=== PATIENT | male | born 1955 | race Caucasian/White ===

== ENCOUNTER 2024-12-01 23:25 | Emergency (ER) | payer OTHER, SELFPAY ==
--- OUTSIDE RECORDS SUMMARY | 2024-09-28 13:15 | XMS_ITS ---
Author Organization [facility] Address [address] [facility] [address] [place] [address] Care Team Providers Care Skills Trainer Name Role Phone Tony Watson Primary Care Provider Mayela Richards Unavailable [phone] Encounters Encounter Location Date Provider Diagnosis [address] [place] [address] 09/28/2024 Mayela Javier Plan Of Treatment Next Appt Details Provider Name:Mayela rowley, 12/21/2024 01:00:00 PM, [address] [facility] [address], [address], [place], [address], Progress Notes * Kasi ASH EDOB: (69 yo M)Acc No.[id number]:09/28/2024 Progress Notes Patient: Kasi LOPEZ Provider: Julius Javier DO :1955 A ge:69 Y S ex:Male Date:09/28/2024 [facility]:[address] Pcp:Tony Watson Subjective: * Chief Complaints: * * Medical History: Objective: * Vitals: Assessment: Plan: * Treatment: * * Electronic signature of Gayla Javier DO on 12/02/2024 at 12:10 AM EDT Sign off status: Pending * Provider: Julius Javier DO Date: 0 09/28/2024 Generated for Cliff santiago/Josh/eTransmitting on: 0 12/02/2024 12:10 AM EDT
--- OUTSIDE RECORDS SUMMARY | 2024-10-26 13:00 | XMS_ITS ---
Author Organization [facility] Address [address] [facility] [place] [address] Care Team Providers Care Oil Agent Name Role Phone Tony Watson Primary Care Provider Mayela Richards Unavailable [phone] Allergies No Known Allergies REASON FOR VISIT 7 Week follow up Medications Medication SIG (Take, Route, Frequency, Duration) Notes Start Date End Date Status MiraLax 17 GM/SCOOP 1 scoop mixed with 8 ounces of fluid Orally Once a day Active Tricor 145 MG 1 tablet Orally Once a day Active Verapamil HCl ER 240 MG 1 tablet Orally Once a day Active Mirtazapine 15 MG 1 tablet at bedtime Orally Once a day Active Proscar 5 MG 1 tablet Orally Once a day Active LORazepam 0.5 MG 1 tablet at bedtime as needed Orally Once a day Active Memantine HCl 5 MG 1 tablet Orally Once a day Active hydroCHLOROthiazide 25 MG 1 tablet in th e morning Orally Once a day Active Lisinopril 40 MG 1 tablet Orally Once a day Active Effexor XR 150 MG 1 capsule with food Orally Once a day Active Divalproex Sodium 250 MG 1 tablet Orally Twice a day Active buPROPion HCl Active Coenzyme Q10 200 MG as directed Orally Active Abilify 5 MG 1 tablet Orally Once a day Active Social History Tobacco Use: Social History Observation Description Date Details (start date - stop date) Never Smoker NA - NA Tobacco Control (Standard) Question Answer Notes Tobacco use: Nonsmoker Vital Signs Height 69 in 10/26/2024 Encounters Encounter Location Date Provider Diagnosis [address] [place] [address] 10/26/2024 Mayela Javier INEZ (acute kidney injury) N17.9 ; Benign essential HTN I10 ; BPH (benign prostatic hypertrophy) N40.0 and Obesity (BMI 30-39.9) E66.9 Assessments Encounter Date Diagnosis (ICD Code) Assessment Notes Treatment Notes Treatment Clinical Notes Section Notes 10/26/2024 INEZ (acute kidney injury) (ICD-10 - N17.9) 10/26/24- - Patient with eGFR of 19ml/min from prior 37ml/min consistent with CKD stage 4. Patient with a Ca 8.9, Albumin 4.1, Phos 3.1. 09/07/24- - - Chronic kidney disease with eGFR of 37ml/min- labs from 09/04/24, from prior levels of to 70ml/min- - -labs from 05/21/24. Etiology associated with history of chronic hypertension with likely associated hypertensive nephrosclerosis. Initial recommendations to work on exercise and weight loss. Patient instructions to avoid non steroidal medications and nephrotoxins, due to their detrimental effects on the kidneys. Labs reviewed with patient and instructions on continued renal improvement provided. Discussed with the patient the aim of sustaining their residual renal function, based on the following: A) Goal of blood pressure of less than 130/80mmHg B) Tight glycemic control with goal A1c less than 6.5 C) Goal urine protein excretion of less than 500mg/dl D) Treat metabolic acidosis with goal serum bicarbonate of more than 20 E) Keep Phos level between 3.5 - 5.5mg/dl F) Goal LDL of less [id number]/dl G) Goal of keeping uric acid level less than 6.5mg/dl H) Maintain a 2gm sodium diet 10/26/2024 Benign essential HTN (ICD-10 - I10) 10/26/24- - - Blood pressure readings in the office today was */*. Goal recommendations of less than 2gms a day sodium diet. Patient education on the significance of management of hypertension, and its effect on sustaining or contributing to the decline in the residual renal function. Monitor home blood pressure, with goal range of systolic readings of 110 to 130 and diastolic readings of 60 to 80. 09/07/24- - - Blood pressure readings in the office today was 149/79. Goal recommendations of less than 2gms a day sodium diet. Patient education on the significance of management of hypertension, and its effect on sustaining or contributing to the decline in the residual renal function. Monitor home blood pressure, with goal range of systolic readings of 110 to 130 and diastolic readings of 60 to 80. 10/26/2024 BPH (benign prostatic hypertrophy) (ICD-10 - N40.0) 09/07/24- - - Patient with urological evidence of urinary retention with planned referral and continued urology consult and management. Plan for intermittent evaluation to rule out obstructive nephropathy. 10/26/2024 Obesity (BMI 30-39.9) (ICD-10 - E66.9) 10/26/24- - - weight of * lbs. Recommendations of dietary and exercise monitoring and management. Recommendations for diet and exercise to aid in achieving a reduction in weight by about 10 to 20 pounds, as a requirement for improved renal function, as well as, additional health benefits. 09/07/24- - - weight of 220lbs. Recommendations of dietary and exercise monitoring and management. Recommendations for diet and exercise to aid in achieving a reduction in weight by about 10 to 20 pounds, as a requirement for improved renal function, as well as, additional health benefits. Plan Of Treatment Next Appt Details Provider Name:Mayela rowley, 12/21/2024 01:00:00 PM, [address] [place] [address], [place], [address], Progress Notes * ARTISArmandony EDOB: (69 yo M)Acc No.[id number]:10/26/2024 Progress Notes Patient: Kasi LOPEZ Provider: Julius Javier DO :1955 A ge:69 Y S ex:Male Date:10/26/2024 Address:[address] [place], [place] [id number] Pcp:Tony Watson Subjective: * Chief Complaints: * 1 . 7 Week follow up. * HPI: C onstitutional: This is a 69 years old male who is referred to [facility] by his PCP for evaluation of renal insufficiency. Patient reports a medical history significant for BPH, hypertension--since the past 40 years; hyperlipidemia, anxiety, depression, chronic obstructive pulmonary disease with bronchospasm, pre-diabetes, keratosis, and rhinitis allergic. ? A llergies/Intolerance: N .K.D.A. S urgical History: c holecystectomy. I nterim History: 10/26/2024--- Patient presents to the office today for CKD F/U. Patient denies any recent hospitalizations or acute illness. Denies steroid or antibiotic usage recently. Denies recent falls or injuries. Patient denies chest pain, abdominal pain, nausea, vomiting or diarrhea. Patient denies edema or worsening to edema at home. Denies shortness of breath or difficulty breathing. Patient reports stable blood pressure at home without lightheadedness or dizziness. * Medical History: B PH, Hypertension, Hyperlipidemia, Anxiety, Depression, Chronic obstructive pulmonary disease with bronchospasm, Keratosis, Rhinitis allergic. * Surgical History: c holecystectomy , gallbladder . * Hospitalization/Major Diagno stic Procedure: S urgical reasons . * Family History: F ather: . M other: , diagnosed with Diabetes mellitus without mention of complication, type II or unspecified type, not stated as uncontrolled, Unspecified heart disease.? Father; heart failure. * Social History: T obacco Use: T obacco Control (Standard) T obacco use: N onsmoker. * Medications: T aking Abilify 5 MG Tablet 1 tablet Orally Once a day , Taking buPROPion HCl , Taking Coenzyme Q10 200 MG Tablet as directed Orally , Taking Divalproex Sodium 250 MG Tablet Delayed Release 1 tablet Orally Twice a day , Taking Effexor XR 150 MG Capsule Extended Release 24 Hour 1 capsule with food Orally Once a day , Taking hydroCHLOROthiazide 25 MG Tablet 1 tablet in the morning Orally Once a day , Taking Lisinopril 40 MG Tablet 1 tablet Orally Once a day , Taking LORazepam 0.5 MG Tablet 1 tablet at bedtime as needed Orally Once a day , Taking Memantine HCl 5 MG Tablet 1 tablet Orally Once a day , Taking MiraLax 17 GM/SCOOP Powder 1 scoop mixed with 8 ounces of fluid Orally Once a day , Taking Mirtazapine 15 MG Tablet 1 tablet at bedtime Orally Once a day , Taking Proscar 5 MG Tablet 1 tablet Orally Once a day , Taking Tricor 145 MG Tablet 1 tablet Orally Once a day , Taking Verapamil HCl ER 240 MG Tablet Extended Release 1 tablet Orally Once a day , Medication List reviewed and reconciled with the patient * Allergies: N .K.D.A. Objective: * Vitals: H t: 69 in. * P ast Orders: L ab:B12 (Order Date - 10/25/2024) (Collection Date & Time - 10/25/2024 05:41 AM) Value Reference Range Vitamin B12 Lvl 393 180-914 - pg/mL L ab:Ferritin (Order Date 10/25/2024) (Collection Date & Time - 10/25/2024 05:41 AM) Value Reference Range Ferritin Lvl 319.2 23.9-336.2 - ng/mL L ab:Folate Lvl (Order Date 10/25/2024) (Collection Date & Time - 10/25/2024 05:41 AM) Value Reference Range Folate Lvl 15.8 >=5.9 - ng/mL L ab:TIBC (Order Date 10/25/2024) (Collection Date & Time - 10/25/2024 05:41 AM) Value Reference Range Iron Sat 15.6 L >=16.0 - % TIBC 405 261-478 - mcg/dL Transferrin 289.0 203.0-362.0 - mg/dL Iron 63 50-212 - mcg/dL L ab:.eGFR (Order Date - 10/25/2024) (Collection Date & Time - 10/25/2024 02:52 PM) Value Reference Range eGFR Non-AA 24 L >=60 - mL/min/1.73m? L ab:Renal Panel (Order Date 10/25/2024) (Collection Date & Time - 10/25/2024 02:52 PM) Value Reference Range Sodium Lvl 140 136-145 - mmol/L Potassium Lvl 4.0 3.4-4.8 - mmol/L Chloride 108 H 98-107 - mmol/L CO2 25 21-31 - mmol/L Anion Gap 7 4-12 - mmol/L Glucose Lvl 184 H 70-99 - mg/dL BUN 34 H 7-25 - mg/dL Creatinine Lvl 2.83 H 0.70-1.30 - mg/dL BUN Crea Ratio 12.0 L 15.0-25.0 - ratio Albumin Lvl 4.4 4.2-5.5 - g/dL Calcium Lvl 9.4 8.6-10.3 - mg/dL Phosphorus 3.2 2.5-4.6 - mg/dL Assessment: * Assessment: 1. A KI (acute kidney injury) - N17.9 (Primary) 2 . B enign essential HTN - I10 3 . B PH (benign prostatic hypertrophy) - N40.0 4 . O besity (BMI 30-39.9) - E66.9 Plan: * Treatment: 2. B enign essential HTN Clinical Notes: 10/26/24- - - Blood pressure readings in the office today was */*. Goal recommendations of less than 2gms a day sodium diet. Patient education on the significance of management of hypertension, and its effect on sustaining or contributing to the decline in the residual renal function. Monitor home blood pressure, with goal range of systolic readings of 110 to 130 and diastolic readings of 60 to 80. 09/07/24- - - Blood pressure readings in the office today was 149/79. Goal recommendations of less than 2gms a day sodium diet. Patient education on the significance of management of hypertension, and its effect on sustaining or contributing to the decline in the residual renal function. Monitor home blood pressure, with goal range of systolic readings of 110 to 130 and diastolic readings of 60 to 80. 3. B PH (benign prostatic hypertrophy) Clinical Notes: 09/07/24- - - Patient with urological evidence of urinary retention with planned referral and continued urology consult and management. Plan for intermittent evaluation to rule out obstructive nephropathy. 4. O besity (BMI 30-39.9) Clinical Notes: 10/26/24- - - weight of * lbs. Recommendations of dietary and exercise monitoring and management. Recommendations for diet and exercise to aid in achieving a reduction in weight by about 10 to 20 pounds, as a requirement for improved renal function, as well as, additional health benefits. 09/07/24- - - weight of 220lbs. Recommendations of dietary and exercise monitoring and management. Recommendations for diet and exercise to aid in achieving a reduction in weight by about 10 to 20 pounds, as a requirement for improved renal function, as well as, additional health benefits. ? * * Electronic signature of Gayla Javier DO on 12/02/2024 at 12:10 AM EDT Sign off status: Pending * Provider: Julius Javier DO Date: 0 10/26/2024 Generated for Cliff santiago/Josh/eTransmitting on: 0 12/02/2024 12:10 AM EDT History and Physical Notes * HPI (History of Present Illness) Category Sub-Category Detail Notes Category Not es Constitutional This is a 69 years old male who is referred to [facility] by his PCP for evaluation of renal insufficiency. Patient reports a medical history significant for BPH, hypertension--since the past 40 years; hyperlipidemia, anxiety, depression, chronic obstructive pulmonary disease with bronchospasm, pre-diabetes, keratosis, and rhinitis allergic. Allergies/Intolerance: N.K.D.A. Surgical History: cholecystectomy
--- OUTSIDE RECORDS SUMMARY | 2024-10-30 09:00 | XMS_ITS ---
Author Organization [facility] Address [address] [place] [address] Care Team Providers Care Superintendent Meter Tests Name Role Phone Tony Watson Primary Care Provider Mayela Richards Unavailable [phone] Allergies No Known Allergies REASON FOR VISIT IPFU, Renal Medications Medication SIG (Take, Route, Frequency, Duration) Notes Start Date End Date Status Tricor 145 MG 1 tablet Orally Once a day Active Verapamil HCl ER 240 MG 1 tablet Orally Once a day Active MiraLax 17 GM/SCOOP 1 scoop mixed with 8 ounces of fluid Orally Once a day Activ e Proscar 5 MG 1 tablet Orally Once a day Active Tamsulosin HCl 0.4 MG 1 capsule Orally O nce a day; Duration: 30 day(s) Active buPROPion HCl 100 MG 150mg Active Memantine HCl 5 MG 1 tablet Orally twice a day Active Divalproex Sodium 250 MG 1 tablet Orally Twice a day Active Effexor XR 150 MG 1 capsule with food Orally Once a day Active Coenzyme Q10 200 MG as directed Orally Active Problems Problem Type SNOMED Code ICD Code Onset Dates Problem Status W/U Status Risk Notes Problem Obstructive nephropathy (02458983) Obstructive nephropathy (N13.8) Active confirmed Vital Signs Blood pressure systolic 100 mm Hg 10/31/19 25 Blood pressure diastolic 68 mm Hg 025 Heart Rate 80 /min 10/30/2024 Height 69 in 10/30/2024 Weight 214.5 lbs 10/30/2024 BMI 31.67 kg/m2 10/30/2024 Oximetry 97 % 10/30/2024 Encounters Encounter Location Date Provider Diagnosis [facility] [address] [place] [address] 10/30/2024 Mayela Javier INEZ (acute kidney injury) N17.9 ; Obstructive nephropathy N13.8 ; Benign essential HTN I10 ; BPH (benign prostatic hypertrophy) N40.0 and Obesity (BMI 30-39.9) E66.9 Assessments Encounter Date Diagnosis (ICD Code) Assessment Notes Treatment Notes Treatment Clinical Notes Section Notes 10/30/2024 INEZ (acute kidney injury) (ICD-10 - N17.9) 10/30/24- - - - Patient with eGFR of 24ml/min from prior 17ml/min consistent with CKD stage 4. UPCR, iPTH, and Uric acid not calculated for visit. Ca 9.4, Alb 4.4, Phos 3.2. Resolved admission severe bladder outlet obstruction with associated bilateral hydronephrosis. Post [place] catheter placement and immediate return of more than 2.5 L and subsequent evaluation and management by urology. Plan at this time to continue with Flomax and Finasteride medications. 10/26/24- - Patient with labs performed for the visit, but was referred to [facility] after I spoke with his and eGFR of 19ml/min from prior 37ml/min consistent [...] - 5.5mg/dl F) Goal LDL of less [id number]/dl G) Goal of keeping uric acid level less than 6.5mg/dl H) Maintain a 2gm sodium diet 10/30/2024 Obstructive nephropathy (ICD-10 - N13.8) 10/30/24- - - -Resolved admission severe bladder outlet obstruction with associated bilateral hydronephrosis. Post [place]ak catheter placement and immediate return of more than 2.5 L and subsequent evaluation and management by urology. Plan at this time to continue with Flomax and Finasteride medications. Bladder outlet obstruction: Admission diagnosis and assessment of bladder outlet obstruction with postobstructive diuresis. Plan at this time to discontinue with his IV fluid, continue with Flomax and Finasteride medications. 10/30/2024 Benign essential HTN (ICD-10 - I10) 10/30/24- - - Blood pressure readings in the office today was 124/84. Goal recommendations of less than 2gms a [...] and diastolic readings of 60 to 80. 10/30/2024 BPH (benign prostatic hypertrophy) (ICD-10 - N40.0) 09/07/24- - - Patient with urological evidence of urinary retention with planned referral and continued urology consult and management. Plan for intermittent evaluation to rule out obstructive nephropathy. 10/30/2024 Obesity (BMI 30-39.9) (ICD-10 - E66.9) 10/30/24- - - weight of 214lbs. Recommendations of dietary and exercise monitoring and [...] as, additional health benefits. Plan Of Treatment Pending Test Test Name Order Date Phosphorus, Serum 10/30/2024 Uric Acid, Serum 10/30/2024 PTH, Intact 10/30/2024 CBC 10/30/2024 RENAL PANEL 10/30/2024 Magnesium Level 10/30/2024 Urinalysis with Culture if indicated 02/2025 Urine Protein Creatinine Ratio Next Appt Details Follow Up: 3-5 Weeks [place], Reason: Provider Name:Mayela rowley, 12/21/2024 01:00:00 PM, [address] [place] [address], [address] , [place], [address], Progress Notes * Kasi ASH EDOB: [birth year] (69 yo M)Acc No.[id number]:10/30/2024 Patient: Kasi LOPEZ Provider: Julius Javier DO :1955 A ge:69 Y S ex:Male Date:10/30/2024 Address:[address] [place], [place] [id number] Pcp:Tony Watson Subjective: * Chief Complaints: * 1 . IPFU. 2. Renal. * HPI: C onstitutional: Patient presents to the office today for CKD F/U post hospitalization. Denies recent falls or injuries since hospital discharge. Patient denies chest pain, abdominal pain, nausea, vomiting or diarrhea. Patient denies edema or worsening to edema at home. Denies shortness of breath or difficulty breathing. Patient reports stable bloo= pressure at home without lightheadedness or dizziness.. * ROS: G eneral/Constitutional: Denies C hange in appetite. D enies C hills. D enies F ever. D enies N ight sweats. O phthalmologic: Denies B lurred vision. D enies D ischarge. D enies E ye Pain. E NT: Denies D ecreased hearing. D enies S ore throat.?Denies S wollen glands. E ndocrine: Denies C old intolerance. D enies E xcessive thirst. D enies H eat intolerance. D enies W eight loss. R espiratory: Denies C ough. D enies S hortness of breath at rest. D enies S hortness of breath with exertion. D enies W heezing. C ardiovascular: Denies C hest pain at rest. D enies C hest pain with exertion. D enies I rregular heartbeat. D enies S hortness of breath. ? G astrointestinal: Denies A bdominal pain. D enies C onstipation. D enies D iarrhea. D enies N ausea. D enies V omiting. G enitourinary: Denies B lood in urine. D enies D ifficulty urinating. D enies F requent urination. D enies P ainful urination. M usculoskeletal: Denies M uscle aches. D enies P ainful joints. D enies S wollen joints. D enies W eakness. S kin: Denies D ry skin. D enies I tching. D enies?Rash. N eurologic: Denies D izziness. D enies F ainting. D enies?Headache. D enies L oss of strength. * Medical History: B PH, Hypertension, Hyperlipidemia, Anxiety, Depression, Chronic obstructive pulmonary disease with bronchospasm, Keratosis, Rhinitis allergic. * Surgical History: c holecystectomy , gallbladder . * Hospitalization/Major Diagno stic Procedure: S urgical reasons , Kidney function 10/2024. * Family History: F ather: . M other: , diagnosed with Diabetes mellitus without mention of complication, type II or unspecified type, not stated as uncontrolled, Unspecified heart disease.? Father; heart failure. * Medications: T aking buPROPion HCl 100 MG Tablet 150mg, Taking Coenzyme Q10 200 MG Tablet as directed Orally , Taking Divalproex Sodium 250 MG Tablet Delayed Release 1 tablet Orally Twice a day , Taking Effexor XR 150 MG Capsule Extended Release 24 Hour 1 capsule with food Orally Once a day , Taking Memantine HCl 5 MG Tablet 1 tablet Orally twice a day , Taking MiraLax 17 GM/SCOOP Powder 1 scoop mixed with 8 ounces of fluid Orally Once a day , Taking Proscar 5 MG Tablet 1 tablet Orally Once a day , Taking Tamsulosin HCl 0.4 MG Capsule 1 capsule Orally Once a day , Taking Tricor 145 MG Tablet 1 tablet Orally Once a day , Taking Verapamil HCl ER 240 MG Tablet Extended Release 1 tablet Orally Once a day , Discontinued Abilify 5 MG Tablet 1 tablet Orally Once a day , Discontinued hydroCHLOROthiazide 25 MG Tablet 1 tablet in the morning Orally Once a day , Discontinued Lisinopril 40 MG Tablet 1 tablet Orally Once a day , Discontinued LORazepam 0.5 MG Tablet 1 tablet at bedtime as needed Orally Once a day , Discontinued Mirtazapine 15 MG Tablet 1 tablet at bedtime Orally Once a day , Medication List reviewed and reconciled with the patient * Allergies: N .K.D.A. Objective: * Vitals: H R: 84 /min,80/min, BP: sittin/84 mm Hg,standin/68mm Hg, Wt:214.5lbs, BMI:31.67Index, Ht:69in, Oxygen sat %:97. * Examination: G eneral Examination: GENERAL APPEARANCE: w ell developed, well nourished, in no acute distress. HEAD: n ormocephalic, atraumatic. EYES: p upils equal, round, reactive to light and accommodation, sclera non-icteric. EARS: n ormal. THROAT: c lear. NECK/THYROID: n kasia supple, full range of motion, no cervical lymphadenopathy. SKIN: w arm and dry, no suspicious lesions. HEART: r egular rate and rhythm, S1, S2 normal, no murmurs.? LUNGS: c lear to auscultation bilaterally. ABDOMEN: s oft, nontender, nondistended, bowel sounds present, normal. BACK: n o costovertebral angle tenderness. EXTREMITIES: n o clubbing, cyanosis, or edema. NEUROLOGIC: n onfocal, motor strength normal upper and lower extremities, sensory exam intact. Assessment: * Assessment: 1. A KI (acute kidney injury) - N17.9 (Primary) 2 . O bstructive nephropathy - N13.8 3 . B enign essential HTN - I10 4 . B PH (benign prostatic hypertrophy) - N40.0 5 . O besity (BMI 30-39.9) - E66.9 ? Plan: * Treatment: 2. O bstructive nephropathy L AB: Phosphorus, Serum L AB: Magnesium Level L AB: PTH, Intact L AB: Urine Protein Creatinine Ratio L AB: RENAL PANEL L AB: CBC L AB: Urinalysis with Culture if indicated L AB: Uric Acid, Serum Clinical Notes: 10/30/24- - - -Resolved admission severe bladder outlet obstruction with associated bilateral hydronephrosis. Post [place] catheter placement and immediate return of more than 2.5 L and subsequent evaluation and management by urology. Plan at this time to continue with Flomax and Finasteride medications. Bladder outlet obstruction: Admission diagnosis and assessment of bladder outlet obstruction with postobstructive diuresis. Plan at this time to discontinue with his IV fluid, continue with Flomax and Finasteride medications. 3. B enign essential HTN L AB: Magnesium Level L AB: Urine Protein Creatinine Ratio L AB: PTH, Intact L AB: Phosphorus, Serum L AB: Uric Acid, Serum L AB: Urinalysis with Culture if indicated L AB: RENAL PANEL L AB: CBC Clinical Notes: 10/30/24- - - Blood pressure readings in the office today was 124/84. Goal recommendations of less than 2gms a [...] and diastolic readings of 60 to 80. 4. B PH (benign prostatic hypertrophy) L AB: Urine Protein Creatinine Ratio L AB: PTH, Intact L AB: CBC L AB: Uric Acid, Serum L AB: RENAL PANEL L AB: Phosphorus, Serum L AB: Urinalysis with Culture if indicated L AB: Magnesium Level Clinical Notes: 09/07/24- - - Patient with urological evidence of urinary retention with planned referral and continued urology consult and management. Plan for intermittent evaluation to rule out obstructive nephropathy. 5. O besity (BMI 30-39.9) L AB: RENAL PANEL L AB: PTH, Intact L AB: Urinalysis with Culture if indicated L AB: Uric Acid, Serum L AB: Phosphorus, Serum L AB: CBC L AB: Magnesium Level L AB: Urine Protein Creatinine Ratio Clinical Notes: 10/30/24- - - weight of 214lbs. Recommendations of dietary and exercise monitoring and [...] well as, additional health benefits. ? * Follow Up: 3 -5 Weeks [place] * * Electronic signature of Gayla Javier DO on 12/02/2024 at 12:10 AM EDT Sign off status: Pending * Provider: Julius Javier DO Date: 0 10/30/2024 Generated for Cliff santiago/Josh/Aliciaitting on: 0 12/02/2024 12:10 AM EDT History and Physical Notes * HPI (History of Present Illness) Category Sub-Category Detail Notes Category Not es Constitutional Patient prese nts to the office today for CKD F/U post hospitalization. Denies recent falls or injuries since hospital discharge. Patient denies chest pain, abdominal pain, nausea, vomiting or diarrhea. Patient denies edema or worsening to edema at home. Denies shortness of breath or difficulty breathing. Patient reports stable bloo= pressure at home without lightheadedness or dizziness. . Examination Category Sub-Category Detail Notes Category Not es General Examination GENERAL APPEARANCE: well dev eloped, well nourished, in no acute distress HEAD: normocephalic, atrau matic EYES: pupils equal, round, reactive to light and accommodation, sclera non-icteric EARS: normal THROAT: clear NECK/THYROID: neck supple, full ra nge of motion, no cervical lymphadenopathy HEART: regular rate and rhy thm, S1, S2 normal, no murmurs LUNGS: clear to auscultatio n bilaterally ABDOMEN: soft, nontender, non distended, bowel sounds present, normal NEUROLOGIC: nonfocal, motor stre ngth normal upper and lower extremities, sensory exam intact SKIN: warm and dry, no amos picious lesions EXTREMITIES: no clubbing, cyanosi s, or edema BACK: no costovertebral an gle tenderness
--- OUTSIDE RECORDS SUMMARY | 2024-11-23 09:00 | XMS_ITS ---
Author Organization [facility] Address [address] [place] [address] Care Team Providers Care Material Control Specialist Name Role Phone Tony Watson Primary Care Provider Mayela Richards Unavailable [phone] Denisha Serra Unavailable [phone] Allergies No Known Allergies REASON FOR VISIT 3 Week follow up Medications Medication SIG (Take, Route, Frequency, Duration) Notes Start Date End Date Status Effexor XR 150 MG 1 capsule with food Orally Once a day Not-Taking Vitamin D3 50 MCG (1999 UT) 1 tablet Orally daily; Duration: 90 days Active Tricor 145 MG 1 tablet Orally Once a day Not-Taking MiraLax 17 GM/SCOOP 1 scoop mixed with 8 ounces of fluid Orally Once a day Not-Taking Memantine HCl 5 MG 1 tablet Orally twic e a day Not-Taking Tamsulosin HCl 0.4 MG 1 capsule Orally O nce a day; Duration: 30 day(s) Active Lisinopril 2.5 MG 1 tablet Orally Once a day; Duration: 30 days 11/23/2024 Active buPROPion HCl 100 MG 150mg Not-Taking Vitamin B12 1000 MCG 1 tablet Orally Onc e a day Active Verapamil HCl ER 240 MG 1 tablet Orally Once a day Active buPROPion HCl ER (XL) 150 MG 1 tablet in the morning Orally Once a day; Duration: 30 day(s) Active Proscar 5 MG 1 tablet Orally Once a day Active Divalproex Sodium 250 MG 1 tablet Orally Twice a day Active Cipro 250 MG 1 tablet Orally twic e a day; Duration: 7 days 11/23/2024 11/30/2024 Active Coenzyme Q10 200 MG as directed Orally Active Social History Tobacco Use: Social History Observation Description Date Details (start date - stop date) Never Smoker NA - NA Tobacco Control (Standard) Question Answer Notes Tobacco use: Nonsmoker Problems Problem Type SNOMED Code ICD Code Onset Dates Problem Status W/U Status Risk Notes Problem Chronic kidney disease stage 3A (disorder) (348045035) Chronic kidney disease, stage 3a (N18.31) Active confirmed Vital Signs Blood pressure systolic 126 mm Hg 11/24/19 25 Blood pressure diastolic 64 mm Hg 025 Heart Rate 77 /min 11/23/2024 Height 69 in 11/23/2024 Weight 211.2 lbs 11/23/2024 BMI 31.19 kg/m2 11/23/2024 Encounters Encounter Location Date Provider Diagnosis [facility] [address] [place] [address] 11/23/2024 Denisha Serra INEZ (acute kidney injury) N17.9 ; Obstructive nephropathy N13.8 ; Benign essential HTN I10 ; BPH (benign prostatic hypertrophy) N40.0 ; Obesity (BMI 30-39.9) E66.9 ; Proteinuria R80.9 and Chronic kidney disease, stage 3a N18.31 Assessments Encounter Date Diagnosis (ICD Code) Assessment Notes Treatment Notes Treatment Clinical Notes Section Notes 11/23/2024 INEZ (acute kidney injury) (ICD-10 - N17.9) 11/23/2024- - Patient with eGFR of 46ml/min from prior 24ml/min consistent with CKD stage 3a. Patient with a UPCR 1.12g/g, Uric acid 7.8, iPTH 39, Ca 10.3, Albumin 4.3, Phos 3.3. Decrease vitamin D from 5000u daily to 2000u daily. Patient complaining of dysuria/burning for about 1 week. Denies fever/chills. Urinary POS for nitrites, Urine RBC 7, and WBC 276. Patient complaining of symptoms of dysuria with urinary catheter in place. Denies fever/chills. Will start cipro 250mg BID for 7 days. Start lisinopril 2.5mg daily for proteinuria management. Discussed tracking home bp for review with plans to increase on ACEi and decrease verapamil if able on RTC in 4 weeks. 10/30/24- - - - Patient with eGFR of 24ml/min from prior 17ml/min consistent with CKD stage 4. UPCR, iPTH, and Uric acid not calculated for visit. Ca 9.4, Alb 4.4, Phos 3.2. Resolved admission severe bladder outlet obstruction with associated bilateral hydronephrosis. Post Livingston catheter placement and immediate return of more than 2.5 L and subsequent evaluation and management by urology. Plan at this time to continue with Flomax and Finasteride medications. 10/26/24- - Patient with labs performed for the visit, but was referred to [facility] after I spoke with his and eGFR [...] - 5.5mg/dl F) Goal LDL of less [id number]/dl G) Goal of keeping uric acid level less than 6.5mg/dl H) Maintain a 2gm sodium diet 11/23/2024 Obstructive nephropathy (ICD-10 - N13.8) 11/23/24- Patient following with urology. Livingston catheter still in place due to unsuccessful voiding trial at last f/u per pt. Next appt with urology scheulded for 12/11 per pt. 10/30/24- - - -Resolved admission severe bladder outlet obstruction with associated bilateral hydronephrosis. Post Livingston catheter placement and immediate return of more than 2.5 L and subsequent evaluation and management by urology. Plan at this time to continue with Flomax and Finasteride medications. Bladder outlet obstruction: Admission diagnosis and assessment of bladder outlet obstruction with postobstructive diuresis. Plan at this time to discontinue with his IV fluid, continue with Flomax and Finasteride medications. 11/23/2024 Benign essential HTN (ICD-10 - I10) 11/23/2024- - Patient is normotensive in office with readings of 126/64. Patient reports normotensive readings at home. Will continue with verapamil ER 240mg daily. Start lisinopril 2.5mg daily for proteinuria management. Discussed tracking home bp for review with plans to increase on ACEi and decrease verapamil if able on RTC 10/30/24- - - Blood pressure readings in [...] and diastolic readings of 60 to 80. 11/23/2024 BPH (benign prostatic hypertrophy) (ICD-10 - N40.0) 11/23/24- Patient following with urology. Livingston catheter still in place due to unsuccessful voiding trial at last f/u per pt. 09/07/24- - - Patient with urological evidence of urinary retention with planned referral and continued urology consult and management. Plan for intermittent evaluation to rule out obstructive nephropathy. 11/23/2024 Obesity (BMI 30-39.9) (ICD-10 - E66.9) 11/23/24- - weight of 211.2 from prior 214lbs. Recommendations of dietary and exercise monitoring and management. 10/30/24- - - weight of 214lbs. Recommendations [...] function, as well as, additional health benefits. 11/23/2024 Proteinuria (ICD-10 - R80.9) 11/23/24- UPCR 1.12g/g, Patient with current urinary infection. Start cipro 250mg BID for 7 days Discussed tracking home blood pressure for review on RTC. Urinary livingston catheter in place. Start lisinopril 2.5mg daily for proteinuria management. 11/23/2024 Chronic kidney disease, stage 3a (ICD-10 - N18.31) 11/23/2024- - Patient with eGFR of 46ml/min from prior 24ml/min consistent with CKD stage 3a. Patient with a UPCR 1.12g/g, Uric acid 7.8, iPTH 39, Ca 10.3, Albumin 4.3, Phos 3.3. Decrease vitamin D from 5000u daily to 2000u daily. Patient complaining of dysuria/burning for about 1 week. Denies fever/chills. Urinary POS for nitrites, Urine RBC 7, and WBC 276. Patient complaining of symptoms of dysuria with urinary catheter in place. Denies fever/chills. Will start cipro 250mg BID for 7 days. Start lisinopril 2.5mg daily for proteinuria management. Discussed tracking home bp for review with plans to increase on ACEi and decrease verapamil if able on RTC in 4 weeks. Plan Of Treatment Medication Medication Name Sig Start Date Stop Date Notes Vitamin D3 50 MCG (1999 UT) 1 tablet Ora lly daily; Duration: 90 days Lisinopril 2.5 MG 1 tablet Orally Once a day; Duration: 30 days 11/23/2024 Cipro 250 MG 1 tablet Orally twic e a day; Duration: 7 days 11/23/2024 11/30/2024 Pending Test Test Name Order Date Phosphorus, Serum 11/23/2024 Magnesium, Serum 11/23/2024 Renal Panel (10) 11/23/2024 Urinalysis with Culture if indicated 07/2024 Urine Protein Creatinine Ratio Next Appt Details Follow Up: 4 Weeks, Reason: F/U,Dr. Javier Provider Name:Mayela rowley, 12/21/2024 01:00:00 PM, [address] [facility], [address], [place], [address], Progress Notes * Kasi ASH EDOB: (69 yo M)Acc No.[id number]:11/23/2024 Progress Notes Patient: Kasi LOPEZ Provider: Chanda Serra CNP :1955 A ge:69 Y S ex:Male Date:11/23/2024 Address:[address] [place] [address], [facility] [id number] Pcp:Tony Watson Subjective: * Chief Complaints: * 1 . 3 Week follow up. * HPI: C onstitutional: This is a 69 years old male who is referred to [facility] by his PCP for evaluation of renal insufficiency. Patient reports a medical history significant for BPH, hypertension--since the past 40 years; hyperlipidemia, anxiety, depression, chronic obstructive pulmonary disease with bronchospasm, pre-diabetes, keratosis, and rhinitis allergic. ? A llergies/Intolerance: Idalia .Faina. Maria Dolores urgical History: c holecystectomy. I nterim History: 11/23/2024--- Patient presents to the office today for [...] pressure at home without lightheadedness or dizziness. Reports urinary catheter still in place with next f/u appt with urology scheduled for 12/11. Patient's also admits that she had her self stop some of his medications but she states she made their PCP aware. Patient complaining of dysuria/burning for about 1 week. Denies fever/chills 10/30/24--- P atient presents to the office today for CKD F/U post hospitalization. Denies recent falls or injuries since hospital discharge. Patient denies chest pain, abdominal pain, nausea, vomiting or diarrhea. Patient denies edema or worsening to edema at home. Denies shortness of breath or difficulty breathing. Patient reports stable blood pressure at home without lightheadedness or dizziness. . * ROS: G eneral/Constitutional: Denies C hange [...] ather: . M other: , diagnosed with Unspecified heart disease, Diabetes mellitus without mention of complication, type II or unspecified type, not stated as uncontrolled.? Father; heart failure. * Social History: T obacco Use: T obacco Control (Standard) T obacco use: N onsmoker. * Medications: T aking buPROPion HCl ER (XL) 150 MG Tablet Extended Release 24 Hour 1 tablet in the morning Orally Once a day , Taking Coenzyme Q10 200 MG Tablet as directed Orally , Taking Divalproex Sodium 250 MG Tablet Delayed Release 1 tablet Orally Twice a day , Taking Proscar 5 MG Tablet 1 tablet Orally Once a day , Taking Tamsulosin HCl 0.4 MG Capsule 1 capsule Orally Once a day , Taking Verapamil HCl ER 240 MG Tablet Extended Release 1 tablet Orally Once a day , Taking Vitamin B12 1000 MCG Tablet 1 tablet Orally Once a day , Taking Vitamin D3 125 MCG (5000 UT) Tablet 1 tablet Orally daily , Not-Taking buPROPion HCl 100 MG Tablet 150mg, Not-Taking Effexor XR 150 MG Capsule Extended Release 24 Hour 1 capsule with food Orally Once a day , Not-Taking Memantine HCl 5 MG Tablet 1 tablet Orally twice a day , Not-Taking MiraLax 17 GM/SCOOP Powder 1 scoop mixed with 8 ounces of fluid Orally Once a day , Not-Taking Tricor 145 MG Tablet 1 tablet Orally Once a day , Medication List reviewed and reconciled with the patient * Allergies: N .K.D.A. Objective: * Vitals: H R:77/min, BP:sittin/64mm Hg, Wt:211.2lbs, BMI:31.19Index, Ht: 69 in. * P ast Orders: L ab:B12 (Order Date - 10/25/2024) (Collection Date & Time - 10/25/2024 05:41 AM) Value Reference Range Vitamin B12 Lvl 393 180-914 - pg/mL L ab:.eGFR (Order Date - 10/25/2024) (Collection Date & Time - 10/25/2024 02:52 PM) Value Reference Range eGFR Non-AA 24 L >=60 - mL/min/1.73m? L ab:Ferritin (Order Date - 10/25/2024) (Collection Date & Time - 10/25/2024 05:41 AM) Value Reference Range Ferritin Lvl 319.2 23.9-336.2 - ng/mL L ab:Folate Lvl (Order Date - 10/25/2024) (Collection Date & Time - 10/25/2024 05:41 AM) Value Reference Range Folate Lvl 15.8 >=5.9 - ng/mL L ab:Renal Panel (Order Date 10/25/2024) (Collection [...] - mg/dL Phosphorus 3.2 2.5-4.6 - mg/dL L ab:TIBC (Order Date 10/25/2024) (Collection Date & Time - 10/25/2024 05:41 AM) Value Reference Range Iron Sat 15.6 L >=16.0 - % TIBC 405 261-478 - mcg/dL Transferrin 289.0 203.0-362.0 - mg/dL Iron 63 50-212 - mcg/dL * Examination: G eneral Examination: GENERAL APPEARANCE: [...] . O besity (BMI 30-39.9) - E66.9 6. P roteinuria - R80.9 7 . C hronic kidney disease, stage 3a - N18.31? Plan: * Treatment: 2. O bstructive nephropathy L AB: Urine Protein Creatinine Ratio L AB: Phosphorus, Serum L AB: Magnesium, Serum L AB: Renal Panel (10) L AB: Urinalysis with Culture if indicated Clinical Notes: 11/23/24- Patient following with urology. Livingston catheter still in place due to unsuccessful voiding trial at last f/u per pt. Next appt with urology scheulded for 12/11 per pt. 10/30/24- - - -Resolved admission severe bladder outlet obstruction with associated bilateral hydronephrosis. Post Livingston catheter placement and immediate return of more [...] 3. B enign essential HTN L AB: Renal Panel (10) L AB: Urine Protein Creatinine Ratio L AB: Phosphorus, Serum L AB: Magnesium, Serum L AB: Urinalysis with Culture if indicated Clinical Notes: 11/23/2024- - Patient is normotensive in office with readings of 126/64. Patient reports normotensive readings at home. Will continue with verapamil ER 240mg daily. Start lisinopril 2.5mg daily for proteinuria management. Discussed tracking home bp for review with plans to increase on ACEi and decrease verapamil if able on RTC 10/30/24- - - Blood pressure readings in [...] B PH (benign prostatic hypertrophy) L AB: Renal Panel (10) L AB: Urine Protein Creatinine Ratio L AB: Magnesium, Serum L AB: Urinalysis with Culture if indicated L AB: Phosphorus, Serum Clinical Notes: 11/23/24- Patient following with urology. Livingston catheter still in place due to unsuccessful voiding trial at last f/u per pt. 09/07/24- - - Patient with urological evidence of urinary retention with planned referral and continued urology consult and management. Plan for intermittent evaluation to rule out obstructive nephropathy. 5. O besity (BMI 30-39.9) L AB: Phosphorus, Serum L AB: Magnesium, Serum L AB: Urinalysis with Culture if indicated L AB: Renal Panel (10) L AB: Urine Protein Creatinine Ratio Clinical Notes: 11/23/24- - weight of 211.2 from prior 214lbs. Recommendations of dietary and exercise monitoring and management. 10/30/24- - - weight of 214lbs. Recommendations [...] as well as, additional health benefits. ? 6. P roteinuria Start Lisinopril Tablet, 2.5 MG, 1 tablet, Orally, Once a day, 30 days, 30 Tablet, Refills 1. ? L AB: Urine Protein Creatinine Ratio L AB: Urinalysis with Culture if indicated L AB: Magnesium, Serum L AB: Phosphorus, Serum L AB: Renal Panel (10) Clinical Notes: 11/23/24- UPCR 1.12g/g, Patient with current urinary infection. Start cipro 250mg BID for 7 days Discussed tracking home blood pressure for review on RTC. Urinary livingston catheter in place. Start lisinopril 2.5mg daily for proteinuria management. 7. C hronic kidney disease, stage 3a Clinical Notes: 11/23/2024- - Patient with eGFR of 46ml/min from prior 24ml/min consistent with CKD stage 3a. Patient with a UPCR 1.12g/g, Uric acid 7.8, iPTH 39, Ca 10.3, Albumin 4.3, Phos 3.3. Decrease vitamin D from 5000u daily to 2000u daily. Patient complaining of dysuria/burning for about 1 week. Denies fever/chills. Urinary POS for nitrites, Urine RBC 7, and WBC 276. Patient complaining of symptoms of dysuria with urinary catheter in place. Denies fever/chills. Will start cipro 250mg BID for 7 days. Start lisinopril 2.5mg daily for proteinuria management. Discussed tracking home bp for review with plans to increase on ACEi and decrease verapamil if able on RTC in 4 weeks. 8. O thers Start Cipro Tablet, 250 MG, 1 tablet, Orally, twice a day, 7 days, 14 Tablet, Refills 0; D ecrease Vitamin D3 Tablet, 50 MCG (2000 UT), 1 tablet, Orally, daily, 90 days, 90 Tablet. * Preventive Medicine: I discussed with patient their clinical state, assessment as well as the plan for this particular visit. During today's visit, more than 30minutes was spent in prepping the chart, active face to face examination, reviewing of patient's labs, and medications, as well as, outlining the patient's medical assessments and plans. * Follow Up: 4 Weeks (Reason: F/U,Dr. Javier) * * Electronic signature of Brady Serra on 12/02/2024 at 12:10 AM EDT Sign off status: Pending * Provider: Chanda Serra CNP Date: 0 11/23/2024 Generated for Cliff santiago/Josh/Aliciaitting on: 0 12/02/2024 12:10 AM EDT History and Physical Notes * HPI (History of Present Illness) Category Sub-Category Detail Notes Category Not es Interim History 11/23/2024--- Patient presents to the office today for [...] pressure at home without lightheadedness or dizziness. Reports urinary catheter still in place with next f/u appt with urology scheduled for 12/11. Patient's also admits that she had her self stop some of his medications but she states she made their PCP aware. Patient complaining of dysuria/burning for about 1 week. Denies fever/chills 10/30/24--- Patient presents to the office today for CKD F/U post hospitalization. Denies recent falls or injuries since hospital discharge. Patient denies chest pain, abdominal pain, nausea, vomiting or diarrhea. Patient denies edema or worsening to edema at home. Denies shortness of breath or difficulty breathing. Patient reports stable blood pressure at home without lightheadedness or dizziness. . Constitutional This is a 69 years old male who is referred to [facility] by his PCP for evaluation of renal insufficiency. Patient reports a medical history significant for BPH, hypertension--since the past 40 years; hyperlipidemia, anxiety, depression, chronic obstructive pulmonary disease with bronchospasm, pre-diabetes, keratosis, and rhinitis allergic. Allergies/Intolerance: N.K.D.A. Surgical History: cholecystectomy Examination Category Sub-Category Detail Notes Category Not [...]
[2024-12-01 22:52] VITALS: BP 143/72
[2024-12-01 23:31] VITALS: BP 136/81; PULSE 81; TEMP 36.7; O2SAT 98; BMI 30.6
[2024-12-01 23:37] VITALS: BP 136/81; O2SAT 98
--- NOTE | 2024-12-01 23:40 | ECG_ITS ---
[facility] Test Date: 2024-12-01 Pat Name: NORTH WISDOM Department: Room: - Gender: Male Family Development Extension Specialist: : 1955 Requested By: [id number] Order Number: [id number] Reading MD: YULIANA JONES Measurements Intervals [place] Rate: 73 P: 51 CO: 166 QRS: 19 QRSD: 84 T: 15 QT: 356 QTc: 382 Interpretive Statements 1100 Sinus rhythm Poor R wave progression; possible anteroseptal infarct age indeterminate 8102 Low QRS voltage in chest leads 9120 atypical ECG No previous ECG available for comparison Electronically Signed On 12-03-2024 16:46:41 EDT by YULIANA JONES
[2024-12-01 23:42] VITALS: PULSE 75
[2024-12-02] VITALS (8 sets, daily range): BP systolic 124–152; BP diastolic 74–88; PULSE 75–80; O2SAT 95–100
--- OUTSIDE RECORDS SUMMARY | 2024-12-02 00:10 | XMS_ITS | Encounter Summary ---
Author Organization [facility] Address [facility] [place] [address] Care Team Providers Care Syrup Mixer Name Role Phone Tony Watson MD Unavailable [phone] Source Comments In the event this information is protected by the Federal Confidentiality of Alcohol and Drug AbusePatient Records regulations: The Federal rules restrict any use of the information to criminally investigate or prosecute any alcohol or drug abuse patient.[facility] Encounter Details Date Type Department Care Team (Late st Contact Info) Description 10/11/2024 Get Medical Advice Urology [address] [place] [address] Andrew Padron MD [address] [place] [address] Psa test Social History Tobacco Use Types Packs/Day Years Used Date Smoking Tobacco: Never Passive Smoke Exposure: Never Smokeless Tobacco: Never PHQ-2 Answer Date Recorded PHQ-2 score 4 10/14/2024 Area Deprivation Index Answer Date Faisal rded National Score (1-100), lower number is lower ri sk 53 08/15/2024 State Score (1-10), lower number is lower risk 3 08/15/2024 Data from: https://www.neighborhoodatlas.medicine.[facility]/. Last address used for calculation [address] 08/15/2024 Sex and Gender Information Value Date Recorded Sex Assigned at Not on file Legal Sex Male 10:01 AM EST Gender Identity Not on file Sexual Orientation Not on file documented as of this encounter Plan of Treatment Upcoming Encounters Date Type Department Care Team (Latest Contact Info) Description 12/11/2024 2:00 PM EDT Nurse Visit Urology [address] [place] [address] Gay Nurse [facility] [address] [place] [address] Nurse visit in 1 month for catheter change 12/28/2024 1:00 PM EDT Results Only [place] [facility] [address] [place] [address] lab 01/04/2025 2:20 PM EDT Office Visit Urology [address] [place] [address] Andrew Padron MD [address] [place] [address] RTC with me in 2 months for TOV with CBC and BMP prior 01/08/2025 4:40 PM EDT [facility] [address] [place] [address] Junior Hicks, DO [address] [place], [place] [id number] documented as of this encounter Visit Diagnoses Not on filedocumented in this encounter Care Teams Syrup Mixer Relationship Specialty Start Date End Date Tony Watson MD [address] [place] [id number] Family Medicine 09/19/24 documented as of this encounter
--- OUTSIDE RECORDS SUMMARY | 2024-12-02 00:10 | XMS_ITS | Encounter Summary ---
Author Organization [employer] Address [id number] [address] [place] [address] Care Team Providers Care Advanced Practice Registered Nurse Name Role Phone Unavailable Primary Care Provider Unavailabl e Encounter Details Date Type Department Care Team (Latest Contact Info) Description 11/28/2024 Travel Social History Tobacco Use Types Packs/Day Years Used Date Smoking Tobacco: Never Assessed Childcare Answer Date Recorded Childcare Unknown 08/30/2018 Employment Answer Date Recorded Employment Unknown 08/30/2018 Purpose - Life Answer Date Recorded Purpose and direction in life Unknown Sex and Gender Information Value Date Recorded Sex Assigned at Not on file Legal Sex Male 11:26 AM EDT Gender Identity Not on file Sexual Orientation Not on file documented as of this encounter Plan of Treatment Not on file documented as of this encounter Visit Diagnoses Not on filedocumented in this encounter
--- OUTSIDE RECORDS SUMMARY | 2024-12-02 00:10 | XMS_ITS | Clinical Summary ---
Author Organization [employer] tem Address [id number] [address] [place] [address] Care Team Providers Care Director Of Outpatient Services Name Role Phone Unavailable Primary Care Provider Unavailabl e Encounters Date Type Department Care Team Description 11/28/2024 Travel 11/16/2024 Travel 11/07/2024 Travel 11/07/2024 Orders Only INTERFACE-ONLY Tony Reynolds MD Essential (primary) hypertension 10/22/2024 Travel 10/22/2024 Orders Only INTERFACE-ONLY Tony Reynolds MD Essential (primary) hypertension 09/03/2024 Orders Only INTERFACE-ONLY Tony Reynolds MD Other constipation 09/03/2024 Orders Only INTERFACE-ONLY Tony Reynolds MD Other constipation 09/03/2024 Orders Only INTERFACE-ONLY Tony Reynolds MD Other constipation 09/03/2024 Orders Only INTERFACE-ONLY Tony Reynolds MD Other constipation 09/03/2024 Travel from Last 3 Months Social History Tobacco Use Types Packs/Day Years [...] on file Sexual Orientation Not on file Plan of Treatment Health Maintenance Due Date Last Done Comments Depression Screening 1968 Tobacco Screening 1968 Adult BMI Screening 1974 DTaP,Tdap and Td Vaccines (1 - Tdap) 06/30/1975 Zoster (Shingles) Vaccine (1 of 2) 2006 Fall Risk Screening 2021 Influenza Vaccine 11/19/2024 Medical Devices Not on file Procedures Procedure Name Priority Date/Time Associated Diagnosis Comments BASIC METABOLIC PANEL Routine 11/28/2024 4:20 PM EDT Chronic kidney disease, stage 3b ([facility]) URIC ACID Routine 11/16/2024 10:55 AM EDT Acute kidney failure, unspecified Other obstructive and reflux uropathy Essential (primary) hypertension Benign prostatic hyperplasia without lower urinary tract symptoms Obesity, unspecified RENAL PANEL Routine 11/16/2024 10:55 AM EDT Acute kidney failure, unspecified Other obstructive and reflux uropathy Essential (primary) hypertension Benign prostatic hyperplasia without lower urinary tract symptoms Obesity, unspecified MAGNESIUM Routine 11/16/2024 10:55 AM EDT Acute kidney failure, unspecified Other obstructive and reflux uropathy Essential (primary) hypertension Benign prostatic hyperplasia without lower urinary tract symptoms Obesity, unspecified CBC (NO DIFF) Routine 11/16/2024 10:55 AM EDT Acute kidney failure, unspecified Other obstructive and reflux uropathy Essential (primary) hypertension Benign prostatic hyperplasia without lower urinary tract symptoms Obesity, unspecified PARATHYROID HORMOME, INTACT Routine 11/16/2024 10:55 AM EDT Acute kidney failure, unspecified Other obstructive and reflux uropathy Essential (primary) hypertension Benign prostatic hyperplasia without lower urinary tract symptoms Obesity, unspecified URINALYSIS Routine 11/16/2024 10:50 AM EDT Acute kidney failure, unspecified Other obstructive and reflux uropathy Essential (primary) hypertension Benign prostatic hyperplasia without lower urinary tract symptoms Obesity, unspecified PROTEIN CREAT RATIO Routine 11/16/2024 1 0:50 AM EDT Acute kidney failure, unspecified Other obstructive and reflux uropathy Essential (primary) hypertension Benign prostatic hyperplasia without lower urinary tract symptoms Obesity, unspecified BASIC METABOLIC PANEL Routine 11/07/2024 3:17 PM EDT Essential (primary) hypertension PROTEIN CREAT RATIO Routine 10/24/2024 1 1:17 AM EDT Acute kidney failure, unspecified Essential (primary) hypertension Benign prostatic hyperplasia without lower urinary tract symptoms Obesity, unspecified URINE CULTURE Routine 10/24/2024 11:17 AM EDT Acute kidney failure, unspecified Essential (primary) hypertension Benign prostatic hyperplasia without lower urinary tract symptoms Obesity, unspecified CYSTATIN C WITH ESTIMATED GFR, S Routine 10/24/2024 11:08 AM EDT Acute kidney failure, unspecified Essential (primary) hypertension Benign prostatic hyperplasia without lower urinary tract symptoms Obesity, unspecified MAGNESIUM Routine 10/24/2024 11:08 AM EDT Acute kidney failure, unspecified Essential (primary) hypertension Benign prostatic hyperplasia without lower urinary tract symptoms Obesity, unspecified URIC ACID Routine 10/24/2024 11:08 AM EDT Acute kidney failure, unspecified Essential (primary) hypertension Benign prostatic hyperplasia without lower urinary tract symptoms Obesity, unspecified VITAMIN D 25 HYDROXY Routine 10/24/2024 11:08 AM EDT Acute kidney failure, unspecified Essential (primary) hypertension Benign prostatic hyperplasia without lower urinary tract symptoms Obesity, unspecified RENAL PANEL Routine 10/24/2024 11:08 AM EDT Acute kidney failure, unspecified Essential (primary) hypertension Benign prostatic hyperplasia without lower urinary tract symptoms Obesity, unspecified TSH Routine 10/24/2024 11:08 AM EDT Acute kidney failure, unspecified Essential (primary) hypertension Benign prostatic hyperplasia without lower urinary tract symptoms Obesity, unspecified PARATHYROID HORMOME, INTACT Routine 10/24/2024 11:08 AM EDT Acute kidney failure, unspecified Essential (primary) hypertension Benign prostatic hyperplasia without lower urinary tract symptoms Obesity, unspecified PROTEIN, URINE, 24 HOUR Routine 10/24/2024 8:25 AM EDT Acute kidney failure, unspecified Essential (primary) hypertension Benign prostatic hyperplasia without lower urinary tract symptoms Obesity, unspecified CREATININE CLEARANCE, URINE Routine 10/24/2024 8:25 AM EDT Acute kidney failure, unspecified Essential (primary) hypertension Benign prostatic hyperplasia without lower urinary tract symptoms Obesity, unspecified COMPREHENSIVE METABOLIC PANEL Routine 09/03/2024 11:36 AM EDT Other constipation C-REACTIVE PROTEIN Routine 09/03/2024 11 :36 AM EDT Other constipation AMYLASE Routine 09/03/2024 11:36 AM EDT Other constipation LIPASE Routine 09/03/2024 11:36 AM EDT Other constipation from Last 3 Months Results * (ABNORMAL) Basic Metabolic Panel (11/28/2024 4:20 PM EDT) Only the most recent of2 resultswithin the time period is included. SODIUM 138 134 - 146 mmol/L 11/28/2024 8:[address] [facility] POTASSIUM 4.3 3.5 - 5.0 mmol/L 11/28/2024 8:[address] [facility] CHLORIDE 103 98 - 109 mmol/L 11/28/2024 8:[address] [facility] CARBON DIOXIDE 24 22 - 32 mmol/L 11/28/2024 8:[address] [facility] ANION GAP 11 5 - 15 mmol/L 11/28/2024 8:[address] [facility] BLOOD UREA NITROGEN 24 5 - 27 mg/dL 11/28/2024 8:[address] [facility] CREATININE 1.34(H) 0.60 - 1.30 mg/dL 11/28/2024 8:[address] [facility] Comment:METHOD TRACEABLE TO IDMS STANDARD GLUCOSE 99 65 - 99 mg/dL 11/28/2024 8:[address] [facility] CALCIUM 9.6 8.5 - 10.5 mg/dL 11/28/2024 8:[address] [facility] EGFR Non-Race Dependent 58(L) >=60 ml/min/1.7 3sq.m 11/28/2024 8:[address] [facility] Comment: Reported eGFR is based on the CKD-EPI 2020 equation that does not use a race coefficient. Blood Venous blood / Unknown Venipuncture / Unknown 11/28/2024 4:20 PM EDT 11/28/2024 4:20 PM EDT Tony Watson MD LAB BLOOD ORDERABLES Final Res ult [facility] [address] [place] [address], [place] [phone] * Parathyroid Hormone, intact (11/16/2024 10:55 AM EDT) Only the most recent of2 resultswithin the time period is included. PTH INTACT 39 12 - 88 pg/mL 11/16/2024 3:[address] [facility] Blood Venous blood / Unknown Venipuncture / Unknown 11/16/2024 10:55 AM EDT 11/16/2024 10:51 AM EDT us Mayela Javier DO LAB BLOOD ORDERABLES Final Result [facility] [address] [place] [address], [place] [phone] * (ABNORMAL) Renal panel (11/16/2024 10:55 AM EDT) Only the most recent of2 resultswithin the time period is included. ALBUMIN 4.3 3.2 - 5.3 g/dL 11/16/2024 3:[address] [facility] CALCIUM 10.3 8.5 - 10.5 mg/dL 11/16/2024 3:[address] [facility] PHOSPHORUS 3.3 2.4 - 4.9 mg/dL 11/16/2024 3:[address] [facility] GLUCOSE 125(H) 65 - 99 mg/dL 11/16/2024 3:[address] [facility] BLOOD UREA NITROGEN 28(H) 5 - 27 mg/dL 11/16/2024 3:[address] [facility] CREATININE 1.62(H) 0.60 - 1.30 mg/dL 11/16/2024 3:[address] [facility] Comment:METHOD TRACEABLE TO IDMS STANDARD SODIUM 141 134 - 146 mmol/L 11/16/2024 3:[address] [facility] POTASSIUM 4.5 3.5 - 5.0 mmol/L 11/16/2024 3:[address] [facility] CHLORIDE 105 98 - 109 mmol/L 11/16/2024 3:[address] [facility] CARBON DIOXIDE 27 22 - 32 mmol/L 11/16/2024 3:[address] [facility] ANION GAP 9 5 - 15 mmol/L 11/16/2024 3:[address] [facility] EGFR Non-Race Dependent 46(L) >=60 ml/min/1.7 3sq.m 11/16/2024 3:[address] [facility] Comment: Reported eGFR is based on the CKD-EPI 2020 equation that does not use a race coefficient. Blood Venous blood / Unknown Venipuncture / Unknown 11/16/2024 10:55 AM EDT 11/16/2024 10:51 AM EDT us Benahili U Iboaya DO LAB BLOOD ORDERABLES Final Result [facility] [address] [place] [address], [place] [phone] * (ABNORMAL) CBC without diff (11/16/2024 10:55 AM EDT) WBC 7.1 4 - 11 x10E9/L 11/16/2024 3:[address] [facility] RBC Count 3.83(L) 4.1 - 5.7 X10E12/L 11/16/2024 3:[address] [facility] Hemoglobin 12.2(L) 13 - 17 g/dL 11/16/2024 3:[address] [facility] Hematocrit 35.7(L) 39 - 50 % 11/16/2024 3:[address] [facility] MCV 93 80 - 100 fL 11/16/2024 3:[address] [facility] MCH 31.8 27 - 34 pg 11/16/2024 3:[address] [facility] MCHC 34.2 32 - 36 g/dL 11/16/2024 3:[address] [facility] RDW 13.7 11.5 - 15 % 11/16/2024 3:[address] [facility] Platelet Count 489(H) 150 - 450 X10E9/L 11/16/2024 3:[address] [facility] MPV 7.6 7 - 12 fL 11/16/2024 3:[address] [facility] Blood Venous blood / Unknown Venipuncture / Unknown 11/16/2024 10:55 AM EDT 11/16/2024 10:51 AM EDT us Benahili U Iboaya DO LAB BLOOD ORDERABLES Final Result [facility] [address] [place] [address], * (ABNORMAL) Uric acid (11/16/2024 10:55 AM EDT) Only the most recent of2 resultswithin the time period is included. URIC ACID 7.8(H) 2.6 - 7.2 mg/dL 11/16/2024 3:[address] [facility] Blood Venous blood / Unknown Venipuncture / Unknown 11/16/2024 10:55 AM EDT 11/16/2024 10:51 AM EDT [facility] Final Result Performing Organization Address City/[facility]/ZIP Co de Phone Number [facility] [address] [place] [address], * (ABNORMAL) Magnesium (11/16/2024 10:55 AM EDT) Only the most recent of2 resultswithin the time period is included. MAGNESIUM 1.5(L) 1.8 - 2.6 mg/dL 11/16/2024 3:[address] [facility] Blood Venous blood / Unknown Venipuncture / Unknown 11/16/2024 10:55 AM EDT 11/16/2024 10:51 AM EDT [facility] LAB BLOOD ORDERABLES Final Result Performing Organization Address [facility] de Phone Number [facility] [address] [place] [address], * (ABNORMAL) Urine protein creatinine ratio (11/16/2024 10:50 AM EDT) Only the most recent of2 resultswithin the time period is included. URINE PROTEIN, RANDOM (MG/L) 690(H) <120 mg/L 11/16/2024 3:[address] [facility] URINE CREATININE,RDM 61.35 mg/dL 11/16/2024 3:[address] [facility] U/PRO/CLINIC PHYSICIAN RATIO CALC 1.12(H) <=0.20 11/16/2024 3:[address] [facility] Urine Urine specimen collection, clean catch / Unknown Collection / Unknown 11/16/2024 10:50 AM EDT 11/16/2024 10:51 AM EDT Narrative [facility] - 11/16/2024 3:23 PM EDT Nephrotic Syndrome is associated with ratios >3.5 us Mayela U Iboaya DO URINE ORDERABLES Final Resu lt [facility] [address] [place] [address], [place] [phone] * (ABNORMAL) Urinalysis (11/16/2024 10:50 AM EDT) COLOR Colorless(A ) Yellow 11/16/2024 3:[address] [facility] TURBIDITY Hazy(A) Clear 11/16/2024 3:[address] [facility] SPECIFIC GRAVITY 1.012 1.003 - 1.035 11/16/2024 3:[address] [facility] NITRITE Positive(A) Negative 11/16/2024 3:[address] [facility] PH,URINE 6.0 5.0 - 8.5 11/16/2024 3:[address] [facility] LEUKOCYTE ESTERASE Large(A) Negative 11/16/2024 3:[address] [facility] PROTEIN 50 mg/dL(A) Negative 11/16/2024 3:[address] [facility] KETONES (URINE) Negative Negative 3:[address] [facility] UROBILINOGEN <1.1 eu/dL <1.1 eu/dL 11/16/2024 3:[address] [facility] BILIRUBIN (URINE) Negative Negative 11/16/2024 3:[address] [facility] BLOOD/HGB Moderate(A) Negative 11/16/2024 3:[address] [facility] R.B.CELLS 7(H) 0 - 5 11/16/2024 3:[address] [facility] W.B.CELLS 276(H) 0 - 5 11/16/2024 3:[address] [facility] WBC CLUMPS Rare(A) None 11/16/2024 3:[address] [facility] GLUCOSE (URINE) Negative Negative 3:[address] [facility] Urine Urine / Unknown Collection / Unknown 11/16/2024 10:50 AM EDT 11/16/2024 10:51 AM EDT us WebChaletili U Iboaya DO URINE ORDERABLES Final Resu lt [facility] [address] [place] [address], * Urine culture (10/24/2024 11:17 AM EDT) CULTURE RESULTS NO GROWTH AT <1000 CFU/mL 10/25/2024 7:[address] [facility] Urine Urine specimen collection, clean catch / Unknown Collection / Unknown 10/24/2024 11:17 AM EDT 10/24/2024 11:20 AM EDT Jesus AlbertoThe 360 Mallsilvia U Yaya DO MICROBIOLOGY - GENERAL ORDE RABLES Final Result [facility] [address] [place] [address], [place] [phone] * (ABNORMAL) Cystatin C with Estimated GFR, S (10/24/2024 11:08 AM EDT) EGFR BY CYSTATIN C 30(L) >60 mL/min/BS A 10/25/2024 3:46 PM EDT [facility] Comment: Estimated GFR calculated using the CKD-EPI Cystatin C (2012) equation. ADDITIONAL INFORMATION Cystatin C-based eGFR may differ substantially from creatinine- based eGFR in patients with abnormal muscle mass or acutely changing renal function. Please interpret together with relevant clinical features. On 08/14/2020 the cystatin C assay method changed. Cystatin C eGFR results > 50 ml/min/1.73m2 are approximately 10% lower with the new assay. CYSTATIN C, S 1.99(H) 0.67 - 1.21 mg/L 10/25/2024 3:46 PM EDT [facility] Comment: Test Performed by: [facility] - [address] [address] Record Searcher: Mu Paez Ph.D.; CLIA# [id number] Blood Venous blood / Unknown Venipuncture / Unknown 10/24/2024 11:08 AM EDT 10/24/2024 11:09 AM EDT us Mayela U Yaya DO LAB BLOOD ORDERABLES Final Result [address] [address], * Vitamin D 25 hydroxy (10/24/2024 11:08 AM EDT) VITAMIN D 25 HYD TOT 50.1 30.0 - 100.0 ng/mL 10/24/2024 4:[address] [facility] Blood Venous blood / Unknown Venipuncture / Unknown 10/24/2024 11:08 AM EDT 10/24/2024 11:09 AM EDT Narrative [facility] - 10/24/2024 4:00 PM EDT Vitamin D status 25 [place] Vitamin D Deficiency <20 ng/mL Insufficiency 20-29 ng/mL Sufficiency 30-100 ng/mL Toxicity >100 ng/mL NOTE: A pediatric reference range has not been established by the bioinformatics scientist of this kit. The [place] [employer] recommends a Vitamin D level of = or >20ng/mL in infants and children. us Benahili U Iboaya DO LAB BLOOD ORDERABLES Final Result [facility] [address] [address] [place] [address], [place] [phone] * TSH (10/24/2024 11:08 AM EDT) TSH 4.17 0.49 - 4.67 uIU/mL 10/24/2024 3:[address] [facility] Blood Venous blood / Unknown Venipuncture / Unknown 10/24/2024 11:08 AM EDT 10/24/2024 11:09 AM EDT us Benahili U Iboaya DO LAB BLOOD ORDERABLES Final Result Performing Organization Address [facility] de Phone Number [facility] [address] [place] [address] [place] [address], [place] [phone] * (ABNORMAL) Protein, urine, 24 hour (10/24/2024 8:25 AM EDT) TOT VOLUME-24H URINE 2600 mL 10/24/2024 7:[address] [facility] URINE TOTAL PROTEIN 156(H) 0 - 150 mg/24h 10/24/2024 7:[address] [facility] Urine Collection / Unknown 10/24/2024 8:25 AM EDT 10/24/2024 11:20 AM EDT us Benahili U Iboaya DO URINE ORDERABLES Final Resu lt [facility] [address] [address] [place] [address], [place] [phone] * (ABNORMAL) Creatinine clearance (10/24/2024 8:25 AM EDT) URINE CREATININE,RDM 43.82 mg/dL 10/25/2024 8:[address] [facility] URINE VOLUME (ML) - TV 2,600 mL 10/25/2024 8:[address] [facility] TIME (HOURS) 24 h 10/25/2024 8:[address] [facility] CREATININE CLEARANCE 18.7(L) 74.0 - 130.0 mL/min 10/25/2024 8:[address] [facility] CREATININE SERUM - SYNCED VALUE 3.37 10/25/2024 8:[address] [facility] Urine 10/24/2024 8:25 AM EDT 10/24/2024 11:20 AM EDT us Mayela Javier DO URINE ORDERABLES Final Resu lt Performing Organization Address City/[facility]/ZIP Co de Phone Number [facility] [address] [place] [address], [place] [phone] * C-reactive protein (09/03/2024 11:36 AM EDT) C REACTIVE PROTEIN 0.1 <=0.7 mg/dL 09/03/2024 4:[address] [facility] Blood Venipuncture / Unknown 09/03/2024 11:36 AM EDT 09/03/2024 11:36 AM EDT us Tony Watson MD LAB BLOOD ORDERABLES Final Res ult [facility] [address] [place] [address], [place] [phone] * Lipase (09/03/2024 11:36 AM EDT) LIPASE 37 11 - 82 U/L 09/03/2024 4:[address] [facility] Blood Venipuncture / Unknown 09/03/2024 11:36 AM EDT 09/03/2024 11:36 AM EDT Tony Watson MD LAB BLOOD ORDERABLES Final Res ult [facility] [address] [place] [address], [place] [phone] * Amylase (09/03/2024 11:36 AM EDT) AMYLASE 44 28 - 100 U/L 09/03/2024 4:[address] [facility] Blood Venipuncture / Unknown 09/03/2024 11:36 AM EDT 09/03/2024 11:36 AM EDT Tony Watson MD LAB BLOOD ORDERABLES Final Res ult Performing Organization Address City/[facility]/ZIP Co de Phone Number [facility] [address] [place] [address], [place] [phone] * (ABNORMAL) Comprehensive metabolic panel (09/03/2024 11:36 AM EDT) SODIUM 142 134 - 146 mmol/L 09/03/2024 4:[address] [facility] POTASSIUM 3.7 3.5 - 5.0 mmol/L 09/03/2024 4:[address] [facility] CHLORIDE 104 98 - 109 mmol/L 09/03/2024 4:[address] [facility] CARBON DIOXIDE 28 22 - 32 mmol/L 09/03/2024 4:[address] [facility] ANION GAP 10 5 - 15 mmol/L 09/03/2024 4:[address] [facility] BLOOD UREA NITROGEN 28(H) 5 - 27 mg/dL 09/03/2024 4:[address] [facility] CREATININE 1.92(H) 0.60 - 1.30 mg/dL 09/03/2024 4:[address] [facility] Comment:METHOD TRACEABLE TO IDMS STANDARD GLUCOSE 127(H) 65 - 99 mg/dL 09/03/2024 4:[address] [facility] CALCIUM 9.8 8.5 - 10.5 mg/dL 09/03/2024 4:[address] [facility] TOTAL PROTEIN 7.7 6.0 - 8.0 g/dL 09/03/2024 4:[address] [facility] ALBUMIN 4.8 3.2 - 5.3 g/dL 09/03/2024 4:[address] [facility] ALKALINE PHOSPHATASE 29(L) 39 - 130 U/L 09/03/2024 4:[address] [facility] AST 12 <=41 U/L 09/03/2024 4:[address] [facility] ALT 10 <=40 U/L 09/03/2024 4:[address] [facility] BILIRUBIN,TOTAL 0.4 0.3 - 1.2 mg/dL 09/03/2024 4:[address] [facility] EGFR Non-Race Dependent 37(L) >=60 ml/min/1.7 3sq.m 09/03/2024 4:[address] [facility] Comment: Reported eGFR is based on the CKD-EPI 2020 equation that does not use a race coefficient. Blood Venipuncture / Unknown 09/03/2024 11:36 AM EDT 09/03/2024 11:36 AM EDT us Tony Watson MD LAB BLOOD ORDERABLES Final Res ult [facility] [address] [place] [address], [place] [phone] from Last 3 Months Insurance [employer] [place] [id number]
--- OUTSIDE RECORDS SUMMARY | 2024-12-02 00:10 | XMS_ITS | Clinical Summary ---
Author Organization [facility] Address [address] [place] [address] Phone Care Team Providers Care Wood Lather Name Role Phone Generic Provider, No Assigned Pcp MD Primary Car e Provider Unavailable Allergies No known active allergies Medications No known medications Active Problems No known active problems Social History Tobacco Use Types Packs/Day Years Used Date Smoking Tobacco: Never Assessed Sex and Gender Information Value Date Recorded Sex Assigned at Not on file Legal Sex Male 3:36 PM EST Gender Identity Not on file Sexual Orientation Not on file Last Filed Vital Signs Vital Sign Reading Time Taken Comments Blood Pressure 139/90 04/30/2023 3:44 PM EST Pulse 88 04/30/2023 3:44 PM EST Temperature 36.9 C (98.4 F) 04/30/2023 3:44 PM EST Respiratory Rate 20 04/30/2023 3:44 PM EST Oxygen Saturation 96% 04/30/2023 3:44 PM EST Inhaled Oxygen Concentration - - Weight 95.3 kg (210 lb) 04/30/2023 3:44 PM EST Height 177.8 cm (5' 10 ) 04/30/2023 3:44 PM EST Body Mass Index 30.13 04/30/2023 3:44 PM EST Plan of Treatment Health Maintenance Due Date Last Done Comments CT Colonography 1956 Colonoscopy 1955 Colorectal Cancer Screening 1956 FIT-DNA (Cologuard) 1956 FIT 1956 Lipid Panel 1955 Medicare Annual Wellness Vis it (AWV) 1956 Sigmoidoscopy 1956 MMR Vaccines (1 of 1 - Stand ant series) 1957 Hepatitis C Screening 1974 DTaP/Tdap/Td Vaccines (1 - Tdap) 1978 PSA Prostate Cancer Screening 2006 Pneumococcal Vaccine (1 of 1 - PCV) 2006 Zoster Vaccines (1 of 2) 2006 COVID-19 Vaccine (1 - 2023-2 5 season) 2024 Influenza Vaccine (#1) 2024 RSV High Risk: (Elderly (60+ ) or Population) (1 - 1-dose 75+ series) 06/30/2031 HIB Vaccines Aged Out No longer eligi ble based on patient's age to complete this topic HPV Vaccines Aged Out No longer eligi ble based on patient's age to complete this topic Hepatitis A Vaccines Aged Out No long er eligible based on patient's age to complete this topic Hepatitis B Vaccines Aged Out No long er eligible based on patient's age to complete this topic IPV Vaccines Aged Out No longer eligi ble based on patient's age to complete this topic Meningococcal Vaccine Aged Out No citlaly mady eligible based on patient's age to complete this topic Rotavirus Vaccines Aged Out No longer eligible based on patient's age to complete this topic Insurance [employer] Care Teams Wood Lather Relationship Specialty Start Date End Date Generic Provider, No Assigned PcpMD PCP - General 04/30/23
--- OUTSIDE RECORDS SUMMARY | 2024-12-02 00:10 | XMS_ITS | Clinical Summary ---
Author Organization [facility] Address [address] [place] [address] Care Team Providers Care Lead Pony Rider Name Role Phone Amadou Watson MD Primary Care Provider Allergies No known active allergies Medications mirtazapine (Remeron) 15 MG tablet Take 15 mg by mouth at bedtime Active memantine (Namenda) 5 MG tablet Take 5 mg by mouth in the morning and 5 mg before bedtime. Active LORazepam (Ativan) 0.5 MG tablet Take 0.25 mg by mouth in the morning and 0.25 mg before bedtime. Active lisinopril 40 MG tablet Take 40 mg by mouth Daily Active hydroCHLOROthia zide (HYDRODiuril) 12.5 MG tablet Take 25 mg by mouth Daily Active escitalopram (Lexapro) 10 MG tablet Take 10 mg by mouth Daily Active divalproex (Depakote) 500 MG EC tablet Take 500 mg by mouth in the morning and 500 mg in the evening and 500 mg before bedtime. Do not crush, chew, or split.. Active divalproex (Depakote) 250 MG EC tablet Take 750 mg by mouth at bedtime Do not crush, chew, or split. Active ARIPiprazole (Abilify) 15 MG tablet Take 15 mg by mouth Daily Active venlafaxine XR (Effexor XR) 150 MG 24 hr capsule Take 150 mg by mouth Daily Do not crush or chew. Active thiamine (Vitamin B-1) 100 MG tablet Take 100 mg by mouth Daily Active fenofibrate (Tricor) 145 MG tablet Take 145 mg by mouth Daily 08/29/2023 Active [facility] Vitamin B-12 1000 MCG tablet Take 1,000 mcg by mouth Daily 12/14/2023 Active verapamil SR (Calan SR) 240 MG ER tablet Take 240 mg by mouth at bedtime Do not crush or chew. Active Active Problems Problem Noted Date Diagnosed Date Altered mental status 07/12/2023 Overview (07/12/2023): It is my impression that the patient has cognitive impairment. The etiology is unclear. This seems like it may be psychiatric in nature but certainly rapid onset neurodegenerative processes or rapidly progressive dementia are not excluded. Initial EEG was unremarkable but was terminated early and I feel further assessment be valuable. . Plan: Two-hour EEG Agitation 07/12/2023 Psychosis 07/12/2023 Anxiety 07/12/2023 Overview (07/12/2023): The patient does have anxiety and then have a history of an anxiety-like episode during a divorce years ago. He does experience significant concerns and frustrations over money and is concerned he will be put in a psychiatric care facility going forward. His orientation seems to be very well and check with his attention seems to be poor. Psychiatric disturbance 07/12/2023 Overview (07/12/2023): It is my impression that the patient has suffered a acute psychotic episode. The patient marginally had no previous psychiatric history. In March 2023 the patient noted difficulty with cognitive function without evidence of definitive focal neurological abnormality. Extensive inpatient evaluation including MRI brain without contrast, routine EEG, heavy metal panel and NMDA screen were unremarkable. Despite multiple medications the patient persists with having cognitive impairment and severe anxiety and psychiatric disturbance. . PLAN: As his processes involving changing repeat MRI of the brain with and without contrast to look for any evolving inflammatory process such as signs of CJD is needed. Additionally further EEG testing is indicated and we will obtain a 2 hour study and perhaps ambulatory study thereafter Family History Medical History Relation Name Comments Depression Father Cancer Mother Hypertension Mother Depression Sibling Relation Name Status Comments Father Mother Sibling Social History Tobacco Use Types Packs/Day Years Used Date Smoking Tobacco: Never Smokeless Tobacco: Never Tobacco Cessation:Counseling Given: Not Answered Alcohol Use Standard Drinks/Week Comments Never 0 (1 standard drink = 0.6 oz pur e alcohol) caffeine: 1-2 cups per day Sex and Gender Information Value Date Recorded Sex Assigned at Not on file Legal Sex Male 6:46 PM EDT Gender Identity Not on file Sexual Orientation Not on file Last Filed Vital Signs Vital Sign Reading Time Taken Comments Blood Pressure 132/88 12/28/2023 9:59 AM EDT Pulse 92 12/28/2023 9:59 AM EDT Temperature - - Respiratory Rate 16 09/14/2023 9:49 AM EDT Oxygen Saturation 98% 12/28/2023 9:59 AM EDT Inhaled Oxygen Concentration - - Weight 107 kg (236 lb 12.8 oz) 12/28/2023 9:59 A M EDT Height 177.8 cm (5' 10 ) 12/28/2023 9:59 AM EDT Body Mass Index 33.98 12/28/2023 9:59 AM EDT Plan of Treatment Not on file Insurance [employer] Care Teams Lead Pony Rider Relationship Specialty Start Date End Date Amadou Watson MD [address] [place] [id number] PCP - General Family Medicine 05/20/23
--- OUTSIDE RECORDS SUMMARY | 2024-12-02 00:11 | XMS_ITS | Encounter Summary ---
Author Organization [facility] Address [address] [place] [address] Care Team Providers Care Recovery Auditor Name Role Phone Tony Watson MD Unavailable [phone] Source Comments In the event this information is protected by the Federal Confidentiality of Alcohol and Drug AbusePatient Records regulations: The Federal rules restrict any use of the information to criminally investigate or prosecute any alcohol or drug abuse patient.[facility] Encounter Details Date Type Department Care Team (Late st Contact Info) Description 09/28/2024 Results Follow-Up Neurology [address] [place] [address] Junior Hicks, DO [address] [place] [address] Social History Tobacco Use Types Packs/Day Years Used Date Smoking Tobacco: Never Passive Smoke Exposure: Never Smokeless Tobacco: Never PHQ-2 Answer Date Recorded PHQ-2 score 4 10/14/2024 Area Deprivation Index Answer Date Faisal rded National Score (1-100), lower number is lower ri sk 53 08/15/2024 State Score (1-10), lower number is lower risk 3 08/15/2024 Data from: https://www.neighborhoodatlas.[facility]/. Last address used for calculation [address] 08/15/2024 Sex and Gender Information Value Date Recorded Sex Assigned at Not on file Legal Sex Male 10:01 AM EST Gender Identity Not on file Sexual Orientation Not on file documented as of this encounter Plan of Treatment Upcoming Encounters Date Type Department Care Team (Latest Contact Info) Description 12/11/2024 2:00 PM EDT Nurse Visit Urology [address] [place] [address] Gay, Nurse [facility] [address] [place] [address] Nurse visit in 1 month for catheter change 12/28/2024 1:00 PM EDT Results Only [facility] [address] [place], [place] [id number] lab 01/04/2025 2:20 PM EDT Office Visit [facility]rology [address] [place] [address] Andrew Padron MD [address] [place] [address] RTC with me in 2 months for TOV with CBC and BMP prior 01/08/2025 4:40 PM EDT [facility] [address] [place] [address] Junior Hicks, DO [address] [place], [place] [id number] documented as of this encounter Visit Diagnoses Not on filedocumented in this encounter Care Teams Recovery Auditor Relationship Specialty Start Date End Date Tony Watson MD [address] [place] [address] Family Medicine 09/19/24 documented as of this encounter
--- OUTSIDE RECORDS SUMMARY | 2024-12-02 00:11 | XMS_ITS | Patient Health Record ---
Author Organization [facility] Address [address] [place] [address] Care Team Providers Care Tour Coordinator Name Role Phone Walter Tony Primary Care Provider Mayela Richards Unavailable [phone] Denisha Serra Unavailable [phone] Allergies No Known Allergies Results Component Value Reference Range Notes TIBC Reviewed date:10/25/2024 02:22:22 PM Interpretation: Performing Lab: Notes/Report: [facility] [address] [place] [address] Iron Sat 15.6 >=16.0 % TIBC 405 261-478 mcg/dL Transferrin 289.0 203.0-362.0 mg/dL Iron 63 50-212 mcg/dL Renal Panel Reviewed date:10/25/2024 03:43:23 PM Interpretation: Performing Lab: Notes/Report: [address] [address] Sodium Lvl 140 136-145 mmol/L Potassium Lvl 4.0 3.4-4.8 mmol/L Chloride 108 98-107 mmol/L CO2 25 21-31 mmol/L Anion Gap 7 4-12 mmol/L Glucose Lvl 184 70-99 mg/dL BUN 34 7-25 mg/dL Creatinine Lvl 2.83 0.70-1.30 mg/dL BUN Crea Ratio 12.0 15.0-25.0 ratio Albumin Lvl 4.4 4.2-5.5 g/dL Calcium Lvl 9.4 8.6-10.3 mg/dL Phosphorus 3.2 2.5-4.6 mg/dL Folate Lvl Reviewed date:10/25/2024 02:22:22 PM Interpretation: Performing Lab: Notes/Report: [address] [address] Folate Lvl 15.8 >=5.9 ng/mL A WHO Technical Consultation has determined that deficient Folate concentrations are considered to be less than 4 ng/mL. Ferritin Reviewed date:10/25/2024 02:22:22 PM Interpretation: Performing Lab: Notes/Report: [address] [address] Ferritin Lvl 319.2 23.9-336.2 ng/mL B12 Reviewed date:10/25/2024 02:22:22 PM Interpretation: Performing Lab: Notes/Report: [address] [address] Vitamin B12 Lvl 393 180-914 pg/mL .eGFR Reviewed date:10/25/2024 03:43:23 PM Interpretation: Performing Lab: Notes/Report: [address] [address] Estimated GFR 24 >=60 mL/min/1.73m? [facility] have implemented the eGFR calculation approach that does not have a coefficient for race and that conforms to the NKF-ASN Task Force Recommendations. Stages of Chronic Kidney Disease GFR Stage 1 Normal to mild loss of kidney function ? 90 Stage 2 Mild loss of kidney function 60 - 89 Stage 3a Mild to moderate loss of kidney function 45 - 59 Stage 3b Moderate to severe loss of kidney function 30 - 45 Stage 4 Severe loss of kidney function 15 - 29 Stage 5 Kidney failure < 15 GFR calculated using the CKD-Epi Creatinine Equation (2020): eGFR = 142 X min(SCr/?, 1)? X max(SCr /?, 1)-1.200 X 0.9938Age X 1.012 [if female] Abbreviations/Units: eGFR (estimated glomerular filtration rate) = mL/min/1.73 m2 SCr (standardized serum creatinine) = mg/dL ? = 0.7 (females) or 0.9 (males) ? = -0.241 (females) or -0.302 (males) min = indicates the minimum of SCr/? or 1 max = indicates the maximum of SCr/? or 1 Age = years Reason For Referral No Information Medications Medication SIG (Take, Route, Frequency, Duration) Notes Start Date End Date Status buPROPion HCl ER (XL) 150 MG 1 tablet in the morning Orally Once a day; Duration: 30 day(s) Active Tamsulosin HCl 0.4 MG 1 capsule Orally O nce a day; Duration: 30 day(s) Active Proscar 5 MG 1 tablet Orally Once a day Active Lisinopril 2.5 MG 1 tablet Orally Once a day; Duration: 30 days 11/23/2024 Active Divalproex Sodium 250 MG 1 tablet Orally Twice a day Active Coenzyme Q10 200 MG as directed Orally Active Effexor XR 150 MG 1 capsule with food Orally Once a day Not-Taking buPROPion HCl 100 MG 150mg Not-Taking Vitamin B12 1000 MCG 1 tablet Orally Onc e a day Active Verapamil HCl ER 240 MG 1 tablet Orally Once a day Active Vitamin D3 50 MCG (2000 UT) 1 tablet Orally daily; Duration: 90 days Active Tricor 145 MG 1 tablet Orally Once a day Not-Taking MiraLax 17 GM/SCOOP 1 scoop mixed with 8 ounces of fluid Orally Once a day Not-Taking Memantine HCl 5 MG 1 tablet Orally twic e a day Not-Taking Social History Tobacco Use: Social History Observation Description Date Details (start date - stop date) Never Smoker NA - NA Tobacco Control (Standard) Question Answer Notes Tobacco use: Nonsmoker Problems Problem Type SNOMED Code ICD Code Onset Dates Problem Status W/U Status Risk Notes Problem Anemia (465454100) Anemia (D64.9) Active confirmed Problem Acute renal failure syndrome (62020564) INEZ (acute kidney injury) (N17.9) Active confirmed Problem 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) Active confirmed Problem Benign prostatic hypertrophy without outflow obstruction (239874280) BPH (benign prostatic hypertrophy) (N40.0) Active confirmed Problem Obesity (690655388) Obesity (BMI 30-39.9) (E66.9) Active confirmed Problem Obstructive nephropathy (20688075) Obstructive nephropathy (N13.8) Active confirmed Problem Lower obstructive uropathy (24430161) Lower obstructive uropathy (N13.9) Active confirmed Problem Essential hypertension (50201977) Benign essential HTN (I10) Active confirmed Problem Chronic kidney disease stage 3 (disorder) (757587453) Chronic kidney disease, stage 3 unspecified (N18.30) Active confirmed Problem Chronic kidney disease stage 3A (disorder) (670367338) Chronic kidney disease, stage 3a (N18.31) Active confirmed Vital Signs Heart Rate 77 /min 11/23/2024 Oximetry 97 % 10/30/2024 Blood pressure diastolic 64 mm Hg 11/23/2024 Height 69 in 11/23/2024 Blood pressure systolic 126 mm Hg 11/23/2024 Weight 211.2 lbs 11/23/2024 BMI 31.19 kg/m2 11/23/2024 Encounters Encounter Location Date Provider Diagnosis [facility] [address] [place] [phone] 10/30/2024 Benjaneili Iboadayne INEZ (acute kidney injury) N17.9 ; Obstructive nephropathy N13.8 ; Benign essential HTN I10 ; BPH (benign prostatic hypertrophy) N40.0 and Obesity (BMI 30-39.9) E66.[address] [place] [address] 11/23/2024 Denisha Serra INEZ (acute kidney injury) N17.9 ; Obstructive nephropathy N13.8 ; Benign essential HTN I10 ; BPH (benign prostatic hypertrophy) N40.0 ; Obesity (BMI 30-39.9) E66.9 ; Proteinuria R80.9 and Chronic kidney disease, stage 3a N18.31 [address] [place] [address] 09/07/2024 Benmalinda Javier INEZ (acute kidney injury) N17.9 ; Benign essential HTN I10 ; BPH (benign prostatic hypertrophy) N40.0 and Obesity (BMI 30-39.9) E66.9 [facility] [address] [place] [phone] 10/25/2024 Benahili Iboaya [facility] [address] [place] [phone] 10/29/2024 Benahili Iboaya Assessments Encounter Date Diagnosis (ICD Code) Assessment Notes Treatment Notes Treatment Clinical Notes Section Notes 09/07/2024 Benign essential HTN (ICD-10 - I10) 09/07/24- - - Blood pressure readings in [...] and diastolic readings of 60 to 80. 09/07/2024 INEZ (acute kidney injury) (ICD-10 - N17.9) 09/07/24- - - Chronic kidney disease with [...] - 5.5mg/dl F) Goal LDL of less sraj846sl/dl G) Goal of keeping uric acid level less than 6.5mg/dl H) Maintain a 2gm sodium diet 10/30/2024 INEZ (acute kidney injury) (ICD-10 - [...] for the visit, but was referred to [facility] after I spoke with his and [...] - 5.5mg/dl F) Goal LDL of less uhms455hi/dl G) Goal of keeping uric acid level [...] continue with Flomax and Finasteride medications. 11/23/2024 INEZ (acute kidney injury) (ICD-10 - [...] for the visit, but was referred to [facility] after I spoke with his and [...] - 5.5mg/dl F) Goal LDL of less dmvw241ik/dl G) Goal of keeping uric acid level [...] diastolic readings of 60 to 80. 10/30/2024 Benign essential HTN (ICD-10 - I10) [...] and diastolic readings of 60 to 80. 09/07/2024 BPH (benign prostatic hypertrophy) (ICD-10 - N40.0) 09/07/24- - - Patient with urological evidence of urinary retention with planned referral and continued urology consult and management. Plan for intermittent evaluation to rule out obstructive nephropathy. 09/07/2024 Obesity (BMI 30-39.9) (ICD-10 - E66.9) 09/07/24- - - weight of 220lbs. Recommendations of dietary and exercise monitoring and management. Recommendations for diet and exercise to aid in achieving a reduction in weight by about 10 to 20 pounds, as a requirement for improved renal function, as well as, additional health benefits. 10/30/2024 BPH (benign prostatic hypertrophy) (ICD-10 - N40.0) 09/07/24- - - Patient with urological evidence of urinary retention with planned referral and continued urology consult and management. Plan for intermittent evaluation to rule out obstructive nephropathy. 11/23/2024 BPH (benign prostatic hypertrophy) (ICD-10 - [...] function, as well as, additional health benefits. 10/30/2024 Obesity (BMI 30-39.9) (ICD-10 - E66.9) [...] RTC in 4 weeks. Plan Of Treatment Pending Test Test Name Order Date Phosphorus, Serum 10/30/2024 Phosphorus, Serum 11/23/2024 Phosphorus, Serum 09/07/2024 Uric Acid, Serum 09/07/2024 Uric Acid, Serum 10/30/2024 Magnesium, Serum 11/23/2024 Magnesium, Serum 09/07/2024 TSH 09/07/2024 PTH, Intact 10/30/2024 PTH, Intact 09/07/2024 Vitamin D, 25-Hydroxy 09/07/2024 Renal Panel (10) 09/07/2024 Renal Panel (10) 11/23/2024 CBC 10/30/2024 Urine Culture and Sensitivity 09/07/2024 Ultrasound : Kidneys and Bladder 025 urine protein 09/07/2024 urine creatinine 09/07/2024 RENAL PANEL 10/30/2024 24 hr corrected Creatinine Clearance and 24hr Protein 09/07/2024 Magnesium Level 10/30/2024 Urinalysis with Culture if indicated 02/2025 Urinalysis with Culture if indicated 07/2024 Urine Protein Creatinine Ratio 5 Urine Protein Creatinine Ratio Cystatin C with Estimated GFR,S-Hopper Next Appt Details Provider Name:Mayela rowley, 12/21/2024 01:00:00 PM, [address] [place] [address], [address] [place], [address], Insurance Providers Payer Name Payer Address Payer Phone Subscriber Number Group Number Insured Name Patient Relationship to Insured Coverage Start Date Coverage End Date [employer] M[employer] ADV [address] [place] [phone] [id number] Kasi Ash Self - patient is the insured Medical (General) History Medical History History ICD Code BPH hypertension hyperlipidemia anxiety depression chronic obstructive pulmonary disease wi th bronchospasm keratosis rhinitis allergic Surgical History Surgery Date(Month/Year) cholecystectomy gallbladder Hospitalization History Reason Date(Month/Year) Kidney function 10/2024 Surgical reasons
--- OUTSIDE RECORDS SUMMARY | 2024-12-02 00:11 | XMS_ITS | Encounter Summary ---
Author Organization [facility] Address [address] [facility] [place] [address] Care Team Providers Care Canal Boat Operator Name Role Phone Amadou Watson MD Primary Care Provider [phone] Reason for Visit * Reason Comments Med Change Request Encounter Details Date Type Department Care Team (Late st Contact Info) Description 07/24/2023 Refill [facility] [address] [place] [phone] Babatunde Anderson DO [address] [place] [address] Parkinson's disease without dyskinesia or fluctuating manifestations (HCC) Social History Tobacco Use Types Packs/Day Years Used Date Smoking Tobacco: Never Smokeless Tobacco: Never Alcohol Use Standard Drinks/Week Comments Never 0 [...] documented as of this encounter Visit Diagnoses Diagnosis Parkinson's disease without dyskinesia or fluctuating manifestations (HCC) documented in this encounter Care Teams Canal Boat Operator Relationship Specialty Start Date End Date Amadou Watson MD [address] [place] [address] PCP - General Family Medicine 05/20/23 documented as of this encounter
--- NOTE | 2024-12-02 01:51 | PC.NURSE ---
Reports chest pain better at this time. Reports having freq. bouts of chest pain that happens after eating.
--- NOTE | 2024-12-02 02:12 | ED.CHESTPAI1 ---
HPI - Chest Pain General Chief Complaint: Chest Pain Stated Complaint: PAIN IN CHEST AND L ARM Time Seen by Provider: 12/02/24 01:50 Source: patient Mode of arrival: walk-in Limitations: no limitations History of Present Illness HPI narrative: patient presents complaining of chest pain. chest pain is substernal and radiates to the left shoulder area. Only happens after he eats. States can start about 30 minutes after eating and last about 2 hours. Ate tonight around 8:30p. this time it did not resolve after a couple of hours and he came in. While waiting to be seen it resolved. No associated dyspnea or nausea. Has not occurred with exertion Related Data Home Medications ?Medication ?Instructions ?Recorded ?Confirmed bupropion HCl 150 mg 24 hr tablet, 150 mg PO DAILY 12/01/24 12/01/24 extended release (Wellbutrin XL) ciprofloxacin HCl 250 mg tablet 250 mg PO BID 12/01/24 12/01/24 (Cipro) cyanocobalamin (vitamin B-12) 1,000 mcg PO DAILY 12/01/24 12/01/24 1,000 mcg capsule finasteride 5 mg tablet (Proscar) 5 mg PO DAILY 12/01/24 12/01/24 lisinopril 2.5 mg tablet 2.5 mg PO DAILY 12/01/24 12/01/24 tamsulosin 0.4 mg capsule (Flomax) 0.4 mg PO DAILY 12/01/24 12/01/24 verapamil 240 mg 24 hr 240 mg PO DAILY 12/01/24 12/01/24 capsule,extended release Allergies Allergy/AdvReac Type Severity Reaction Status Date / Time No Known Drug Allergies Allergy Verified 12/01/24 23:38 Review of Systems ROS Status of ROS 10 or more systems reviewed and unremarkable except as noted in history and below PFSH PFSH Social History Little interest or pleasure in doing things: not at all Feeling down, depressed, or hopeless: not at all Exam Constitutional Vital Signs, click to edit/add: Last Vital Signs Temp 98.0 F 12/01/24 23:31 Pulse 75 12/02/24 05:02 Resp 20 12/02/24 05:02 BP 134/76 12/02/24 05:02 Pulse Ox 98 12/02/24 05:02 O2 Del Method Room Air 12/02/24 05:02 Common normals: no apparent distress, average body habitus, oriented x3, no limitations, healthy appearing, alert and well nourished HENMT Common normals: normocephalic and head/scalp atraumatic Eye Common normals: EOMs intact bilaterally and conjunctivae normal Respiratory Common normals: normal respiratory effort, no retractions, no use of accessory muscles and clear to auscultation bilaterally Cardio Common normals: regular rate, regular rhythm, S1 normal heart sound and S2 normal heart sound GI Common normals: Normal to inspection, nondistended, normoactive bowel sounds present, soft to palpation and non-tender Extremity Common normals: normal to inspection and full ROM Neuro Common normals: oriented x3, CN's II-XII intact bilaterally and moves all extremities Psych Appearance: grossly normal Course Vital Signs Vital signs: Vital Signs Temperature 98.0 F 12/01/24 23:31 Pulse Rate 81 12/01/24 23:31 Respiratory Rate 20 12/01/24 23:31 Blood Pressure 136/81 12/01/24 23:31 Pulse Oximetry 98 12/01/24 23:31 Oxygen Delivery Method Room Air 12/01/24 23:31 Temperature 98.0 F 12/01/24 23:31 Pulse Rate 75 12/02/24 05:02 Respiratory Rate 20 12/02/24 05:02 Blood Pressure 134/76 12/02/24 05:02 Pulse Oximetry 98 12/02/24 05:02 Oxygen Delivery Method Room Air 12/02/24 05:02 MDM - Chest Pain MDM Narrative Medical decision making narrative: patient presents with chest pain that occurs only after eating. Typically 30 minutes after eating the pain occurs . pain substernal and radiates to the left shoulder. It then resolves after a couple of hours. Tonight it took longer for it to resolve. Pain clinically is GI related. Serial troponin neg. EKG low voltage but no acute changes. d-dimer positive and CTA pending at change of shift. Patient informed that currently the working diagnosis is GERD and plan use of Pepcid due to his CKD. Final treatment depends on result of CTA. Care transferred to oncoming physician at change of shift Lab Data Labs: Lab Results 12/02/24 12/02/24 Range/Units 02:45 04:32 WBC 8.4 (4.0-11.0) 10^3/uL RBC 3.94 L (4.70-6.10) 10^6/uL Hgb 12.6 L (14.0-18.0) g/dL Hct 36.8 L (42.0-54.0) % MCV 93.4 (80.0-94.0) fL MCH 32.0 (25.9-34.0) pg MCHC 34.2 (29.9-35.2) g/dL RDW 13.6 (11.0-15.0) % Plt Count 371 (150-450) 10^3/uL MPV 9.4 L (9.5-13.5) fL Neut % (Auto) 55.3 (43.0-75.0) % Lymph % (Auto) 30.6 (20.5-60.0) % Greene % (Auto) 9.9 (1.7-12.0) % Eos % (Auto) 3.2 (0.9-7.0) % Baso % (Auto) 0.5 (0.2-2.0) % Neut # (Auto) 4.7 (1.4-6.5) 10^3/uL Lymph # (Auto) 2.6 (1.2-3.8) 10^3/uL Greene # (Auto) 0.8 (0.3-0.8) 10^3/uL Eos # (Auto) 0.3 (0.0-0.7) 10^3/uL Baso # (Auto) 0.0 (0.0-0.1) 10^3/uL Abs Immat Gran (auto) 0.04 H (0.00-0.03) 10^3/uL Imm/Tot Granulo (auto) 0.5 (0.0-0.5) % D-Dimer 0.60 H (<=0.59) mg/L FEU Sodium 140 (136-145) mmol/L Potassium 4.1 (3.5-5.1) mmol/L Chloride 103 (98-107) mmol/L Carbon Dioxide 24.1 (21.0-32.0) mmol/L Anion Gap 17.0 BUN 28.0 H (7.0-18.0) mg/dL Creatinine 1.59 H (0.70-1.30) mg/dL Est GFR ( Amer) 53 L (>=60 mL/min/1.73m^2) Est GFR (Non-Af Amer) 44 L (>=60 mL/min/1.73m^2) BUN/Creatinine Ratio 17.6 Glucose 110 H (74-106) mg/dL Calcium 9.7 (8.5-10.1) mg/dL Troponin I High Sens 4.9 5.3 (4.0-76.1) pg/mL Discharge Plan Discharge Patient Disposition: Still a Patient
--- NOTE | 2024-12-02 02:16 | XR_ITS ---
[place] [id number] Patient Name: NORTH WISDOM MRN: [id number] date: 1955 Sex: M Assigned Patient Location: ER Current Patient Location: Accession/Order Number: [id number] Exam Date: 12/02/2024 02:20 Report Date: 12/02/2024 08:32 At the request of: ROMINA BAINS MD Procedure: XR chest 1V Plain film chest Single view HISTORY: Chest pain. Left arm pain COMPARISON: None FINDINGS: SUPPORT DEVICES: None POSTSURGICAL CHANGES: None HEART: Within normal limits PULMONARY MEGAN: Within normal limits MEDIASTINUM: Unremarkable LUNGS AND PLEURA: No acute lung process, pleural effusion or pneumothorax identified. BONY STRUCTURES: Intact ADDITIONAL FINDINGS None XR/XR chest 1V IMPRESSION: No acute process. Impression dictated by: Alexx Bowman M.D. 12/02/2024 8:32 AM Dictation Location: [place] [address] Electronically authenticated by: [id number] Y Date: 12/02/2024 08:32
[2024-12-02 03:00] LABS: Hematocrit 36.8 % (42.0-54.0); Hemoglobin 12.6 g/dL (14.0-18.0); Immature Granulocytes Abs Auto 0.04 10^3/uL (0.00-0.03); Immature Granulocytes Pct Auto 0.5 % (0.0-0.5); Lymphocytes Absolute Auto 2.6 10^3/uL (1.2-3.8); Mean Corpuscular HGB Conc 34.2 g/dL (29.9-35.2); Mean Corpuscular Hemoglobin 32.0 pg (25.9-34.0); Mean Corpuscular Volume 93.4 fL (80.0-94.0); Platelet Count 371 10^3/uL (150-450); Red Blood Count 3.94 10^6/uL (4.70-6.10); White Blood Count 8.4 10^3/uL (4.0-11.0)
[2024-12-02 03:18] LABS: Anion Gap 17.0; Blood Urea Nitrogen 28.0 mg/dL (7.0-18.0); Calcium 9.7 mg/dL (8.5-10.1); Carbon Dioxide 24.1 mmol/L (21.0-32.0); Chloride 103 mmol/L (98-107); Estimated GFR (African America 53 (>=60 mL/min/1.73m^2); Estimated GFR (Non-African Ame 44 (>=60 mL/min/1.73m^2); Glucose 110 mg/dL (74-106); Potassium 4.1 mmol/L (3.5-5.1); Sodium 140 mmol/L (136-145)
--- OUTSIDE RECORDS SUMMARY | 2025-01-06 20:00 | XMS_ITS | Clinical Summary ---
Author Organization Unknown Care Team Providers Care Grizzly Worker Name Role Phone CAROLINA ROMANO Unavailable Unavailable CHEYENNE JANSEN, MELISSA Unavailable Unavailable Payers Payer Name Policy Type Policy Number Effective Date Expira tion Date [employer] - DEVOTED [id number] Problems Condition Name Condition Details Condition Category Status Onset Date Resolution Date Last Treatment Date Treating Clinician Comments ACUTE KIDNEY FAILURE, UNSPECIFIED Active 10-24 00:00: 00 BENIGN PROSTATIC HYPERPLASIA WITHOUT LOWER URINRY TRACT SYMP Active 10-24 00:00: 00 OTHER OBSTRUCTIVE AND REFLUX UROPATHY Active 10-24 00:00: 00 RETENTION OF URINE, UNSPECIFIED Active 11-07 00:00: 00 ENCOUNTER FOR FITTING AND ADJUSTMENT OF URINARY DEVICE Active 10-24 00:00: 00 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 Active 10-24 00:00: 00 ESSENTIAL (PRIMARY) HYPERTENSION Active 11-07 00:00: 00 CHRONIC OBSTRUCTIVE PULMONARY DISEASE, UNSPECIFIED Active 11-07 00:00: 00 DEPRESSION, UNSPECIFIED Active 11-07 00:00: 00 ANXIETY DISORDER, UNSPECIFIED Active 11-07 00:00: 00 ACTINIC KERATOSIS Active 11-07 00:00: 00 HYPERLIPIDEM IA, UNSPECIFIED Active 11-07 00:00: 00 OBESITY, UNSPECIFIED Active 11-07 00:00: 00 BODY MASS INDEX [BMI] 31.0-31.9, ADULT Active 11-07 00:00: 00 Allergies, Adverse Reactions, Alerts Allergy Name Allergy Type Status Severity Reaction(s) Onset Date Inactive Date Treating Clinician Comments NKA Propensity to adverse reactions Active 2024-10 08:47:3 2 Medications Ordered Medication Name Filled Medication Name Start Date Stop Date Current Medication? Ordering Clinician Indication Dosage Frequency Signature (SIG) Comments Components venlafaxine ER 37.5 mg capsule,ext ended release 24 hr 8-19 00:00: 00 11-09 23:59 :00 No [id number] DEPRESSION Per instruc tions DAILY Per instructio ns DAILY (route: oral) Med Classific ation: Central Nervous System Agents venlafaxine ER 75 mg capsule,ext ended release 24 hr 8-19 00:00: 00 11-09 23:59 :00 No [id number] DEPR Per instruc tions DAILY Per instructio ns DAILY (route: oral) Med Classific ation: Central Nervous System Agents bupropion HCl XL 150 mg 24 hr tablet, extended release 8-14 00:00: 00 Yes [id number] MOOD Per instruc tions EVERY DAY Per instructio ns EVERY DAY (route: oral) Med Classific ation: Central Nervous System Agents hydrochloro thiazide 25 mg tablet 8-11 00:00: 00 11-09 23:59 :00 No [id number] DIURETIC Per instruc tions EVERY DAY Per instructio ns EVERY DAY (route: oral) Med Classific ation: Cardiovas cular Therapy Agents venlafaxine ER 150 mg capsule,ext ended release 24 hr 8-11 00:00: 00 Yes [id number] DEPRESSION Per instruc tions EVERY DAY Per instructio ns EVERY DAY (route: oral) Med Classific ation: Central Nervous System Agents tamsulosin 0.4 mg capsule 8-07 00:00: 00 Yes [id number] PROSTATE Per instruc tions EVERY DAY FOR 60 DAYS Per instructio ns EVERY DAY FOR 60 DAYS (route: oral) Med Classific ation: Genitouri nary Therapy verapamil ER (SR) 240 mg tablet,exte nded release 6-03 00:00: 00 Yes [id number] HEART Per instruc tions EVERY DAY Per instructio ns EVERY DAY (route: oral) Med Classific ation: Cardiovas cular Therapy Agents lisinopril 40 mg tablet 6- 00:00: 00 11-09 23:59 :00 No [id number] HEART Per instruc tions EVERY DAY Per instructio ns EVERY DAY (route: oral) Med Classific ation: Cardiovas cular Therapy Agents cyanocobala min (vit B-12) 1,000 mcg tablet 11-09 00:00: 00 Yes [id number] SUPPLEMENT 1 tablet DAILY 1 tablet DAILY (route: oral) Med Classific ation: Electroly te Balance-N utritiona l Products finasteride 5 mg tablet 11-09 00:00: 00 Yes [id number] PROSTATE 1 tablet DAILY 1 tablet DAILY (route: oral) Med Classific ation: Genitouri nary Therapy Vital Signs Vital Name Observation Time Observation Value Commen ts Temperature 2024-11-30 13:25:00.000 97 [degF] Temperature 2024-11-27 08:17:00.000 97 [degF] Temperature 2024-11-23 08:22:00.000 98.2 [degF] Temperature 2024-11-20 09:14:00.000 96.9 [degF] Temperature 2024-11-13 08:59:00.000 96.9 [degF] Temperature 2024-11-09 08:48:00.000 97.1 [degF] BMI (%) 2024-11-09 08:26:46.000 30 kg/m2 Height 2024-11-09 08:26:40.000 69 [in_us] Pulse 2024-11-30 13:25:00.000 78 /min Pulse 2024-11-27 08:17:00.000 80 /min Pulse 2024-11-23 08:22:00.000 86 /min Pulse 2024-11-20 09:14:00.000 88 /min Pulse 2024-11-13 08:59:00.000 89 /min Pulse 2024-11-09 08:48:00.000 80 /min Respirations 2024-11-30 13:25:00.000 18 /min Respirations 2024-11-27 08:17:00.000 18 /min Respirations 2024-11-23 08:22:00.000 18 /min Respirations 2024-11-20 09:14:00.000 16 /min Respirations 2024-11-13 08:59:00.000 16 /min Respirations 2024-11-09 08:48:00.000 18 /min Weight (lbs) 2024-11-09 08:26:46.000 205 [lb_av] Systolic Blood Pressure 2024-11-30 13:25:00.000 132 mm [Hg] Systolic Blood Pressure 2024-11-27 08:17:00.000 130 mm [Hg] Systolic Blood Pressure 2024-11-23 08:22:00.000 140 mm [Hg] Systolic Blood Pressure 2024-11-20 09:14:00.000 150 mm [Hg] Systolic Blood Pressure 2024-11-13 08:59:00.000 148 mm [Hg] Systolic Blood Pressure 2024-11-09 08:48:00.000 130 mm [Hg] Diastolic Blood Pressure 2024-11-30 13:25:00.000 78 mm [Hg] Diastolic Blood Pressure 2024-11-27 08:17:00.000 90 mm [Hg] Diastolic Blood Pressure 2024-11-23 08:22:00.000 80 mm [Hg] Diastolic Blood Pressure 2024-11-20 09:14:00.000 90 mm [Hg] Diastolic Blood Pressure 2024-11-13 08:59:00.000 90 mm [Hg] Diastolic Blood Pressure 2024-11-09 08:48:00.000 78 mm [Hg] Plan of Treatment Planned Activity Planned Date Details Comments Future Scheduled Test SKILLED NU RSE TO EVALUATE AND DEVELOP PLAN OF CARE TO BE COUNTERSIGNED BY PHYSICIAN. SKILLED NURSE TO ASSESS/EVALUATE CO-MORBID CONDITIONS INCLUDING DEPRESSION ANXIETY KIDNEY DISEASE HTN AND OBSTRUCTIVE UROPATHY. AND OTHER CONDITIONS THAT PRESENT THEMSELVES DURING THE COURSE OF THIS EPISODE TO IDENTIFY CHANGES AND INTERVENE TO MINIMIZE COMPLICATIONS. [code = SKILLED NURSE TO EVALUATE AND DEVELOP PLAN OF CARE TO BE COUNTERSIGNED BY PHYSICIAN. SKILLED NURSE TO ASSESS/EVALUATE CO-MORBID CONDITIONS INCLUDING DEPRESSION ANXIETY KIDNEY DISEASE HTN AND OBSTRUCTIVE UROPATHY. AND OTHER CONDITIONS THAT PRESENT THEMSELVES DURING THE COURSE OF THIS EPISODE TO IDENTIFY CHANGES AND INTERVENE TO MINIMIZE COMPLICATIONS.] Future Scheduled Test SKILLED NU RSE FOR OBSERVATION / ASSESSMENT OF GASTROINTESTINAL STATUS AND TO INTERVENE TO MINIMIZE COMPLICATIONS. SKILLED NURSE TO PROVIDE SKILLED TEACHING/REINFORCEMENT RELATED TO ALTERED GASTROINTESTINAL STATUS INCLUDING PATHOPHYSIOLOGY, NUTRITIONAL REQUIREMENTS, AND MEDICATION REGIMEN. [code = SKILLED NURSE FOR OBSERVATION / ASSESSMENT OF GASTROINTESTINAL STATUS AND TO INTERVENE TO MINIMIZE COMPLICATIONS. SKILLED NURSE TO PROVIDE SKILLED TEACHING/REINFORCEMENT RELATED TO ALTERED GASTROINTESTINAL STATUS INCLUDING PATHOPHYSIOLOGY, NUTRITIONAL REQUIREMENTS, AND MEDICATION REGIMEN.] Future Scheduled Test SKILLED NU RSE TO PROVIDE SKILLED TEACHING/REINFORCEMENT OF MANAGEMENT OF HYPERTENSION. [code = SKILLED NURSE TO PROVIDE SKILLED TEACHING/REINFORCEMENT OF MANAGEMENT OF HYPERTENSION.] Future Scheduled Test SKILLED NU RSE TO PERFORM OBSERVATION / ASSESSMENT OF GENITOURINARY STATUS AND INTERVENE TO MINIMIZE COMPLICATIONS OF DISEASE PROCESS. SKILLED NURSE TO PROVIDE INSTRUCTION REGARDING MANAGEMENT OF DISEASE PROCESS INCLUDING PATHOPHYSIOLOGY, NUTRITIONAL/FLUID REQUIREMENTS, AND MEDICATION REGIMEN. [code = SKILLED NURSE TO PERFORM OBSERVATION / ASSESSMENT OF GENITOURINARY STATUS AND INTERVENE TO MINIMIZE COMPLICATIONS OF DISEASE PROCESS. SKILLED NURSE TO PROVIDE INSTRUCTION REGARDING MANAGEMENT OF DISEASE PROCESS INCLUDING PATHOPHYSIOLOGY, NUTRITIONAL/FLUID REQUIREMENTS, AND MEDICATION REGIMEN.] Future Scheduled Test SKILLED NU RSE TO INSTRUCT PATIENT / CAREGIVER IN INDWELLING URINARY CATHETER MANAGEMENT INCLUDING CARE OF DIETRICH CATHETER, SIGN AND SYMPTOMS OF COMPLICATIONS, PERINEAL CARE, TUBE AND BAG PLACEMENT. CATHETER CHANGES MANAGED BY MD. CATHETER #14 FR, 10 CC BALLOON. [code = SKILLED NURSE TO INSTRUCT PATIENT / CAREGIVER IN INDWELLING URINARY CATHETER MANAGEMENT INCLUDING CARE OF DIETRICH CATHETER, SIGN AND SYMPTOMS OF COMPLICATIONS, PERINEAL CARE, TUBE AND BAG PLACEMENT. CATHETER CHANGES MANAGED BY MD. CATHETER #14 FR, 10 CC BALLOON.] Future Scheduled Test SKILLED NU RSE TO OBSERVE AND ASSESS INTEGUMENTARY STATUS TO IDENTIFY CHANGES AND INTERVENE TO MINIMIZE COMPLICATIONS. SKILLED NURSE TO PROVIDE SKILLED TEACHING RELATED TO ALTERED SKIN INTEGRITY INCLUDING PATHOPHYSIOLOGY, NUTRITION, MEDICATION REGIMEN, AND PRESSURE ULCER PREVENTION. SKILLED NURSE TO REPORT SIGNIFICANT CHANGES IN STATUS TO PHYSICIAN FOR EARLY INTERVENTION. [code = SKILLED NURSE TO OBSERVE AND ASSESS INTEGUMENTARY STATUS TO IDENTIFY CHANGES AND INTERVENE TO MINIMIZE COMPLICATIONS. SKILLED NURSE TO PROVIDE SKILLED TEACHING RELATED TO ALTERED SKIN INTEGRITY INCLUDING PATHOPHYSIOLOGY, NUTRITION, MEDICATION REGIMEN, AND PRESSURE ULCER PREVENTION. SKILLED NURSE TO REPORT SIGNIFICANT CHANGES IN STATUS TO PHYSICIAN FOR EARLY INTERVENTION.] Future Scheduled Test SKILLED NU RSE TO PERFORM MULTIFACTOR FALL RISK ASSESSMENT AND IMPLEMENT INTERVENTIONS TO DECREASE RISK OF FALLS. SKILLED NURSE TO INSTRUCT ON HOME SAFETY, IMPACT OF POLYPHARMACY, ENVIRONMENTAL SAFETY, AND FALL PREVENTION. [code = SKILLED NURSE TO PERFORM MULTIFACTOR FALL RISK ASSESSMENT AND IMPLEMENT INTERVENTIONS TO DECREASE RISK OF FALLS. SKILLED NURSE TO INSTRUCT ON HOME SAFETY, IMPACT OF POLYPHARMACY, ENVIRONMENTAL SAFETY, AND FALL PREVENTION.] Future Scheduled Test SKILLED NU RSE TO OBSERVE AND ASSESS PATIENT WITH GENERALIZED DEPRESSION. ASSESS NEED FOR MEDICATION, MEDICATION CHANGES AND POTENTIAL NEED FOR REFERRAL TO PROVIDE COUNSELING AND ASSISTANCE WITH MANAGING DEPRESSION. [code = SKILLED NURSE TO OBSERVE AND ASSESS PATIENT WITH GENERALIZED DEPRESSION. ASSESS NEED FOR MEDICATION, MEDICATION CHANGES AND POTENTIAL NEED FOR REFERRAL TO PROVIDE COUNSELING AND ASSISTANCE WITH MANAGING DEPRESSION.] Future Scheduled Test HOME [facility] MAY ACCEPT ORDERS FROM THE FOLLOWING PHYSICIANS: DR. Josr GALINDO, UROLOGY. [code = HOME HEALTH AGENCY MAY ACCEPT ORDERS FROM THE FOLLOWING PHYSICIANS: DR. Josr GALINDO, UROLOGY.] Goal Patient Goal - M CAPRI SURE I AM CARING FOR CATHETER RIGHT AND NORMALACY. BETTER MENTAL STATE. Goal Provider Goal - A PLAN OF CARE WILL BE ESTABLISHED THAT MEETS ALL PATIENT'S NURSING NEEDS AND COUNTERSIGNED BY PHYSICIAN. Goal Provider Goal - CARDIOVASCULAR EXACERBATIONS WILL BE IDENTIFIED PROMPTLY AND INTERVENTIONS INITIATED TO MINIMIZE ASSOCIATED RISK. PATIENT / CAREGIVER WILL VERBALIZE/DEMONSTRATE AN ABILITY TO CARE FOR ALTERED CARDIOVASCULAR STATUS BY END OF EPISODE. ABNORMAL O2 SATURATION LEVELS WILL BE REPORTED TO PHYSICIAN. Goal Provider Goal - PATIENT / CAREGIVER WILL VERBALIZE/DEMONSTRATE ABILITY TO CARE FOR HYPERTENSION. Goal Provider Goal - GENITOURINARY SYSTEM WILL BE EVALUATED AND EXACERBATIONS IDENTIFIED WITH INTERVENTIONS IMPLEMENTED TO MINIMIZE COMPLICATIONS. PATIENT / CAREGIVER WILL VERBALIZE/DEMONSTRATE ABILITY TO CARE FOR ALTERED GENITOURINARY STATUS BY END OF EPISODE. Goal Provider Goal - PATIENT / CAREGIVER WILL VERBALIZE/DEMONSTRATE REQUIRED KNOWLEDGE TO MANAGE URINARY CATHETER CARE AND WILL BE ABLE TO VERBALIZE SIGNS AND SYMPTOMS OF URINARY TRACT INFECTION. Goal Provider Goal - CHANGES IN SKIN INTEGRITY STATUS WILL BE IDENTIFIED AND REPORTED TO THE PHYSICIAN FOR PROMPT INTERVENTION. PATIENT / CAREGIVER WILL VERBALIZE/DEMONSTRATE ADEQUATE KNOWLEDGE OF INTEGUMENTARY STATUS AND APPROPRIATE MEASURES TO PROMOTE SKIN INTEGRITY AND PREVENT INJURY. Goal Provider Goal - PATIENT WILL DEMONSTRATE/VERBALIZE KNOWLEDGE OF INTERVENTIONS TO PREVENT FALLS AND SAFETY HAZARDS. PATIENT WILL REMAIN SAFE WITHIN HOME ENVIRONMENT. Goal Provider Goal - PATIENT / CAREGIVER WILL VERBALIZE UNDERSTANDING OF MEDICATION COMPLIANCE AND MEASURES TO MANAGE DEPRESSION. Goal Provider Goal - ADDITIONAL ORDERS WILL BE RECEIVED FROM ALTERNATE PHYSICIAN IN A TIMELY MANNER. Progress Notes Progress Notes <paragraph>[Visit Date: 2024 by MELISSA QUINN RN]:</paragraph><paragraph>PT AT TABLE. DENIES CONCERNS. VS TAKEN AND STABLE. ASSESSMENT DONE AND WNL FOR PT. ABD SOFT WITH ACTIVE BS. LUNGS CLEAR. DENIES FALLS SINCE LAST VISIT. DENIES MED CHANGES. PT DENIES FURTHER NEEDS.</paragraph> Encounters Start Date/Time End Date/Time Encounter Type Admission Type Attending [facility] Care Department Encounter ID Discharge Date Discharge Status Discharge Condition Discharge Reason Percent Goals Met 2024-11-09 00:00:00 2025-01-07 00:00:00 Outpatient NEW ADMISSION [facility] [id number]
== END 2024-12-02 07:26 | disposition home or self-care (01) ==
PROVIDERS: Emergency Provider Internal Medicine; PCP Family Medicine
DX: R07.89 Other chest pain (principal); R79.89 Other specified abnormal findings of blood chemistry
CPT/HCPCS: 36415; 71045; 71275; 80048; 84484; 85025; 85378; 93005; 99285; Q9966